=== PATIENT | female | born 1960 | race Caucasian/White ===

== ENCOUNTER 2017-01-19 06:30 | Day surgery (SDC) | payer OTHER ==
[~2017-01-19 06:30] MED LIST: Buffered Lidocaine 0.9% SYRIN* 5 ML/SYR SYRINGE INTRADERM ONE
[2017-01-19] MEDS ORDERED: ceFAZolin 2 GM PREMIX (*) 2 GM/50 ML BAG IVPB ONE (06:35)
[2017-01-19] MEDS ORDERED: Bupivacaine 0.5% W/EPI SDV* 30 ML VIAL ONE ×2 (07:29→07:42)
[2017-01-19] MEDS ORDERED: Midazolam* 1 MG/ML 2 ML VIAL (2 MG) ONE (07:34)
[2017-01-19] MEDS ORDERED: fentaNYL* 50 MCG/ML 2 ML VIAL (100 MCG VIAL) ONE (07:34)
[2017-01-19] MEDS ORDERED: Lidocaine 2% PF * 5 ML VIAL ONE (08:23)
[2017-01-19] MEDS ORDERED: Dexamethasone IV* 4 MG/ML 1 ML (4 MG) ONE (08:23)
[2017-01-19] MEDS ORDERED: Propofol* 10 MG/ML 20 ML BTL IV PUSH ONE (08:23)
[2017-01-19] MEDS ORDERED: Ondansetron INJ* 2 MG/ML VIAL ONE (08:23)
[2017-01-19] MEDS ORDERED: EPHEDrine (Pressors)* 50 MG/ML VIAL ONE (09:07)
[2017-01-19] MEDS ORDERED: Metoclopramide IV* 5 MG/ML 2 ML VIAL IV PRN (09:33)
[2017-01-19] MEDS ORDERED: Metoclopramide IV* 5 MG/ML 2 ML VIAL ONE (11:27)
[2017-01-19 11:33] VITALS: BP 107/57
--- NOTE | 2017-01-19 18:58 | OP ---
DATE OF OPERATION: 01/19/17 - [facility] DATE OF : 64 SURGEON: Rey Lucas MD RADIO RIGGER: ROHAN Birch. An diagnostic assistant was needed for the entirety of the procedure to aid in positioning of the arm, retraction and with the arthroscopic equipment. ANESTHESIOLOGIST: Dr. Hodge. ANESTHESIA: General plus block. PRE-OP DIAGNOSES: 1. Left shoulder rotator cuff tear. 2. Left shoulder acromioclavicular degenerative joint disease. POST-OP DIAGNOSES: 1. Moderate sized left shoulder rotator cuff tear. 2. Left shoulder acromioclavicular degenerative joint disease. 3. Left shoulder glenohumeral synovitis. PROCEDURES PERFORMED: 1. Left shoulder diagnostic arthroscopy. 2. Left shoulder arthroscopic debridement. 3. Left shoulder arthroscopic synovectomy. 4. Left shoulder arthroscopic subacromial decompression with acromioplasty. 5. Left shoulder mini-open double roll rotator cuff repair. 6. Left shoulder open distal clavicle excision. INDICATIONS: Rosetta has had progressive pain that failed to go away despite many months and activity modification and therapy and injections. MRI showed a decent sized tear of the rotator cuff tendon. We had talked about risks and benefits, she had wanted to proceed. ESTIMATED BLOOD LOSS: 25 mL. COMPLICATIONS: None. FINDINGS: See dictation. DESCRIPTION OF PROCEDURE: Rosetta was seen in the preoperative holding area. The correct side, site, and procedure were identified. We came back to the operating room. The arm was prepped and draped in the usual fashion. She had been positioned in the beach chair position. She had gotten her block out in the preop holding area. After the arm was prepped and draped, a time-out was performed. The arm was placed in the Villanueva and Nephew Spider arm mcconnell and I then went ahead and marked out my portal sites. I infiltrated the subacromial space in the operative portals with 0.5% Marcaine. I then developed my posterior portal in a standard fashion with an #11 blade followed by the blunt trocar to enter the joint. The camera was introduced in the joint. The joint was inspected. She was very tight anteriorly and there was not great visualization anteriorly; however, I was able to see the rotator cuff and there was quite a significant tear there. The biceps tendon was a little degenerative, but there was not a lot of synovitis around the tendon. There was no significant SLAP tear. The posterior labrum looked intact. The visualization of the anterior inferior labrum was poor and the subscapularis tendon was intact. I went ahead and brought in the shaver and debrided back the freed edges of the rotator cuff and some synovitis. I then brought in the radiofrequency ablator and performed a partial synovectomy with the radiofrequency ablator. At this point, the joint was looking good, so I withdrew the arthroscopic portals from the shoulder joint and placed the camera in the subacromial space. I located my lateral portal with the spinal needle. I then placed a switching stick and dilated over this and then introduced my radiofrequency ablator through the lateral portal. I performed a subacromial decompression of the bursa. The margins of the rotator cuff were cleaned up as the bursa was excised. I then brought in my bur and performed an arthroscopic acromioplasty of the anterior inferior hook off of the acromion. The one set was complete. Then, I went ahead and decided that it should best served with a mini- open rotator cuff repair due to the size of the tear. I therefore irrigated everything out and then withdrew the arthroscopic equipment. At this point, I made a 3 cm longitudinal incision in line with my lateral portal from the lateral margin of the acromion longitudinally distally. The full- thickness flaps were raised off the deltoid fascia. This was split. The fibers of the deltoid were bluntly longitudinally. I placed a Link retractor to visualize the rotator cuff tear. The footprint of the rotator cuff insertion was debrided and cleaned up and curetted off to prepare for until I got some bleeding bone and was prepared for good tendon to bone healing. I then placed my two medial row anchors. These were Villanueva and Nephew Suture anchors. I used the Villanueva and Nephew Suture passer to pass the two tails of suture off my anterior tendon through the anterior portion of the rotator cuff tear. I then passed all four tails of the suture through the rotator cuff posteriorly. I then took three tails of suture and brought them down and secured them laterally with a PushLock type Villanueva and Nephew Suture anchor. The other three tails of suture were brought down more posteriorly and secured with a PushLock Villanueva and Nephew Suture anchor. At this point, the double-row repair was completed. There was excellent gnosticism of the rotator cuff footprint. There was excellent tendon to bone apposition. It was very tight and very secure. I took the arm trough a range of motion and the rotator cuff did not gap off the bone throughout the entire arc of motion. I therefore went ahead and took the rasp and just freshen up my subacromial decompression. I then irrigated up this wound. The deltoid fascia was closed with 0 Vicryl suture. The skin was closed with 3-0 nylon suture. The portal sites at this time are closed with 3-0 nylon suture. I then made a 2 cm incision directly over the AC joint. The dissection was carried down. The clavipectoral fascia was incised longitudinally as were the superior AC ligaments. Soft tissue was released off the bone. A couple of baby Hohmann retractors were placed. The sagittal saw was used to excise the distal 1 cm of clavicle. The wound was irrigated. The superior AC ligaments were reapproximated with 0 Vicryl suture. Skin was closed with 3-0 nylon suture. At this point, all of the wounds and the subacromial space were again infiltrated with the remainder of the 0.5% Marcaine with epinephrine. The wounds were dressed with Xeroform, 4x4s, Tegaderm and then an ABD was placed with foam tape on top of that. A clean apparatus was placed over that. The arm was placed in an abduction splint. The patient was then woken up and taken to the recovery room in stable condition. [id number]/[facility] #: [id number] CYNDEE
== END 2017-01-19 12:03 | disposition home or self-care (01) ==
LOC: OREAST 06:30
PROVIDERS: ATTEND Orthopaedic Surgery Hand Surgery
DX: S46.012A Strain of muscle(s) and tendon(s) of the rotator cuff of left shoulder, initial encounter (principal); M19.012 Primary osteoarthritis, left shoulder; M65.812 Other synovitis and tenosynovitis, left shoulder; G89.18 Other acute postprocedural pain; X58.XXXA Exposure to other specified factors, initial encounter; Y92.9 Unspecified place or not applicable; F17.210 Nicotine dependence, cigarettes, uncomplicated
CPT/HCPCS: 88304; 88311; C1713; J0690; J1100; J2250; J2405; J2704; J2765; J3010

== ENCOUNTER 2017-05-15 08:32 | Day surgery (SDC) | payer OTHER ==
[~2017-05-15 08:32] MED LIST changes: +Dexamethasone IV* 4 MG/ML 1 ML (4 MG) IV SLOW PU ONE; +Famotidine IV* 10 MG/ML 2 ML (20 mg) IV ONE; +Sodium Citrate/Citric Acid* 15 ML UDC PO ONE
[2017-05-15] MEDS ORDERED: Famotidine IV* 10 MG/ML 2 ML (20 mg) ONE (09:06)
[2017-05-15] MEDS ORDERED: Dexamethasone IV* 4 MG/ML 1 ML (4 MG) ONE (09:06)
[2017-05-15] MEDS ORDERED: Sodium Citrate/Citric Acid* 15 ML UDC ONE (09:07)
[2017-05-15] MEDS ORDERED: fentaNYL* 50 MCG/ML 2 ML VIAL (100 MCG VIAL) ONE ×3 (10:05→11:20)
[2017-05-15] MEDS ORDERED: Midazolam* 1 MG/ML 2 ML VIAL (2 MG) ONE (10:05)
[2017-05-15] MEDS ORDERED: Rocuronium* 10 MG/ML VIAL ONE (10:05)
[2017-05-15] MEDS ORDERED: Succinylcholine* 20 MG/ML 10 ML VIAL ONE (10:08)
[2017-05-15] MEDS ORDERED: Propofol* 10 MG/ML 20 ML BTL IV PUSH ONE (10:08)
[2017-05-15] MEDS ORDERED: Ondansetron INJ* 2 MG/ML VIAL IV PRN (10:17)
[2017-05-15] MEDS ORDERED: PROCHLORPERAZINE INJ 5 MG/ML 2 ML VIAL IV PRN (10:17)
[2017-05-15] MEDS ORDERED: Naloxone* 0.4 MG/ML 1 ML VIAL IV PRN (10:17)
[2017-05-15] MEDS ORDERED: HYDROmorphone INJ* 1 MG/ML CARPUJECT SYRINGE IV PRN (10:17)
[2017-05-15] MEDS ORDERED: Ketorolac INJ* 30 MG/ML 1 ML VIAL IV PRN (10:17)
[2017-05-15] MEDS ORDERED: oxyCODONE/Acetamin 5/325 MG* TAB PO PRN (10:17)
[2017-05-15] MEDS ORDERED: Sugammadex * 200 MG/2 ML VIAL IV PUSH ONE (10:22)
[2017-05-15] MEDS: fentaNYL* 50 MCG/ML 2 ML VIAL (100 MCG VIAL) IV PRN ×3 (11:06→11:26)
[2017-05-15] MEDS ORDERED: Ketorolac INJ* 30 MG/ML 1 ML VIAL ONE (11:08)
[2017-05-15] MEDS ORDERED: HYDROmorphone INJ* 2 MG/ML CARPUJECT SYRINGE ONE (11:11)
[2017-05-15] MEDS ORDERED: Bupivacaine 0.25% SDV* 30 ML ONE (11:30)
[2017-05-15] MEDS ORDERED: Betamethasone INJ* 6 MG/ML 5 ML VIAL (30 MG) PRN (11:43)
[2017-05-15] MEDS ORDERED: oxyCODONE/Acetamin 5/325 MG* TAB ONE (12:20)
[2017-05-15 12:22] VITALS: BP 130/52
--- NOTE | 2017-05-16 14:42 | OP ---
DATE OF OPERATION: 05/15/17 - [facility] DATE OF : 64 SURGEON: Rey Lucas MD STRIPER: None. ANESTHESIOLOGIST: Dr. Saldaña. ANESTHESIA: General. PRE-OP DIAGNOSIS: Severe stiffness, status post left shoulder mini open rotator cuff repair and arthroscopic decompression 3 months ago. POST-OP DIAGNOSIS: Severe stiffness, status post left shoulder mini open rotator cuff repair and arthroscopic decompression 3 months ago. OPERATIVE PROCEDURE: Left shoulder manipulation under anesthesia. INDICATIONS: Rosetta had the shoulder surgery done about 3 months ago, it has just become quite stiff. She has been working very hard with the therapist, but she is not really making gains. She has essentially no external rotation and severely limited flexion and abduction. I had talked to her about her options. She wanted to proceed with surgery. ESTIMATED BLOOD LOSS: None. COMPLICATIONS: None. FINDINGS: None. DESCRIPTION OF PROCEDURE: Rosetta was seen in the preoperative holding area. We came back to the operating room. Anesthesia was induced. We had a time-out. I very gently manipulated the shoulder first into external rotation. They required a few little pops and scar tissue bands released. Once I had achieved full external rotation, I brought the arm back down to the side and then slowly brought it into forward flexion and gentle abduction until I had the completely above the head. Again, multiple small pops were felt as I very gently performed manipulation. I did not manipulate her in internal rotation as I did not want to put any stress on the rotator cuff repair. The manipulation went uneventfully. She was then woken up and taken to the recovery room in stable condition. [id number]/[facility] #: [id number] MTDD
== END 2017-05-15 13:06 | disposition home or self-care (01) ==
LOC: OR 08:32
PROVIDERS: ATTEND Orthopaedic Surgery Hand Surgery
DX: M75.02 Adhesive capsulitis of left shoulder (principal); Z98.890 Other specified postprocedural states; F17.210 Nicotine dependence, cigarettes, uncomplicated
CPT/HCPCS: A9270-GY; J0330; J1100; J1170; J1885; J2250; J2704; J3010

== ENCOUNTER 2019-05-21 10:55 | Emergency (ER) | payer BC, OTHER ==
--- NOTE | 2019-05-21 11:22 | ED ---
HPI Chest Pain - HPI Summary HPI Summary: This patient is a 58 y/o female presenting to [facility] via EMS from [facility] for left sided chest pain since last night. Patient reports yesterday she had high blood pressure and her PCP started her on low dose of Hydrochlorothiazide. Patient notes last night she was not feeling well and began to have left sided chest pain and left arm pain. This morning upon waking up she still had left sided chest pain radiating into her left arm, along with sinus pressure and tingling in her face. She took her blood pressure this morning and it was 160 systolic. Patient took a shower and went to work and at work she still didn't feel well. Her blood pressure was 168 systolic at work and she went to Urgent Care. 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 She currently rates her chest pain 3/10 in severity. Denies fever, nausea, vomiting, shortness of breath. PMHx: GERD for which she takes Protonix BID, chronic constipation for which she takes Linzess, small bacteria intestine overgrowth, brain aneurysm for which she takes daily baby aspirin. Denies tobacco and drug use. She admits to occasional alcohol use. Home Medications Medication Instructions Recorded Confirmed Type Fluticasone NASAL SPRAY 50MCG* 2 spray BOTH NARES DAILY 01/12/17 05/21/19 History [Flonase NASAL SPRAY 50MCG*] Linaclotide (NF) [Linzess (NF)] 290 mcg PO QAM 01/12/17 05/21/19 History Polyethylene Glycol 3350 BTL* 7 g PO DAILY 01/12/17 05/21/19 History [Miralax] Aspirin EC TAB* [Ecotrin EC Low 81 mg PO DAILY 05/21/19 05/21/19 History Dose 81 MG*] Cimetidine TAB (NF) [Tagamet (NF)] 300 mg PO QPM 05/21/19 05/21/19 History Cranberry Fruit Extract [Hm 1,000 mg PO DAILY 05/21/19 05/21/19 History Cranberry Ultra Streng] Cyanocobalamin TAB* [Vitamin B12 500 mcg PO DAILY 05/21/19 05/21/19 History TAB*] Cyclosporine 0.05% OPHTH (NF) 1 drop BOTH EYES Q12H 05/21/19 05/21/19 History [Restasis 0.05% OPHTH] L.acidoph,Paracasei, B.lactis 1 each PO DAILY 05/21/19 05/21/19 History [Probiotic] Lysine HCl [l-Lysine] 500 mg PO DAILY 05/21/19 05/21/19 History Magnesium Oxide [Magnesium] 250 mg PO DAILY 05/21/19 05/21/19 History Multivitamins/Minerals TAB* 1 tab PO DAILY 05/21/19 05/21/19 History [Theragran/minerals TAB*] [place]-3 Fatty Acids (Nf) [Fish Oil 1,120 mcg PO DAILY 05/21/19 05/21/19 History (NF)] Ondansetron TAB* [Zofran 4 MG Tab*] 4 mg PO Q8H PRN 05/21/19 05/21/19 History Pantoprazole TAB * [Protonix TAB*] 40 mg PO DAILY 05/21/19 05/21/19 History ValACYclovir (*) [Valtrex 1 GM(*)] 2 gm PO DAILY 05/21/19 05/21/19 History hydroCHLOROthiazide 12.5 mg PO DAILY 05/21/19 05/21/19 History [Hydrochlorothiazide] - History of Current Complaint Time Seen by Provider: 05/21/19 10:57 Hx Obtained From: Patient Onset/Duration: Started Hours Ago, Still Present Timing: Lasting Hours Current Severity: Mild Pain Intensity: 3 Pain Scale Used: 0-10 Numeric Chest Pain Location: Left Anterior Chest Pain Radiates: Yes Chest Pain Radiates To:: Arm - left Character: Dull/Aching - aching Aggravating Factor(s): Nothing Alleviating Factor(s): Nothing Associated Signs and Symptoms: Positive: Chest Pain, Tingling - sinuses, Sinus Discomfrot. Negative: Shortness of Breath, Fever, Nausea, Vomiting - Allergy/Home Medications Allergies/Adverse Reactions: Allergies Allergy/AdvReac Type Severity Reaction Status Date / Time No Known Allergies Allergy Verified 05/11/17 15:17 Home Medications: Home Medications Fluticasone NASAL SPRAY 50MCG* [Flonase NASAL SPRAY 50MCG*] 2 spray BOTH NARES DAILY 01/12/17 [History Confirmed 05/21/19] Linaclotide (NF) [Linzess (NF)] 290 mcg PO QAM 01/12/17 [History Confirmed 05/20] Polyethylene Glycol 3350 BTL* [Miralax] 7 g PO DAILY 01/12/17 [History Confirmed 05/21/19] Aspirin EC TAB* [Ecotrin EC Low Dose 81 MG*] 81 mg PO DAILY 05/21/19 [History Confirmed 05/21/19] Cimetidine TAB (NF) [Tagamet (NF)] 300 mg PO QPM 05/21/19 [History Confirmed 12/30] Cranberry Fruit Extract [Hm Cranberry Ultra Streng] 1,000 mg PO DAILY 05/21/19 [ History Confirmed 05/21/19] Cyanocobalamin TAB* [Vitamin B12 TAB*] 500 mcg PO DAILY 05/21/19 [History Confirmed 05/21/19] Cyclosporine 0.05% OPHTH (NF) [Restasis 0.05% OPHTH] 1 drop BOTH EYES Q12H 05/20 [History Confirmed 05/21/19] L.acidoph,Paracasei, B.lactis [Probiotic] 1 each PO DAILY 05/21/19 [History Confirmed 05/21/19] Lysine HCl [l-Lysine] 500 mg PO DAILY 05/21/19 [History Confirmed 05/21/19] Magnesium Oxide [Magnesium] 250 mg PO DAILY 05/21/19 [History Confirmed 05/21/19 ] Multivitamins/Minerals TAB* [Theragran/minerals TAB*] 1 tab PO DAILY 05/21/19 [ History Confirmed 05/21/19] [place]-3 Fatty Acids (Nf) [Fish Oil (NF)] 1,120 mcg PO DAILY 05/21/19 [History Confirmed 05/21/19] Ondansetron TAB* [Zofran 4 MG Tab*] 4 mg PO Q8H PRN 05/21/19 [History Confirmed 05/21/19] Pantoprazole TAB * [Protonix TAB*] 40 mg PO DAILY 05/21/19 [History Confirmed ] ValACYclovir (*) [Valtrex 1 GM(*)] 2 gm PO DAILY 05/21/19 [History Confirmed 12/30] hydroCHLOROthiazide [Hydrochlorothiazide] 12.5 mg PO DAILY 05/21/19 [History Confirmed 05/21/19] PMH/Surg Hx/FS Hx/Imm Hx Endocrine/Hematology History: Denies: Hx Diabetes Cardiovascular History: Denies: Hx Hypertension, Hx Pacemaker/ICD GI History: Reports: Hx Gastroesophageal Reflux Disease, Other GI Disorders - CHRONIC CONSTIPATION//SMALL BACTERIA INTESTINE OVERGROWTH-SEE A GASTRO MD History: Denies: Hx Renal Disease Musculoskeletal History: Reports: Other Musculoskeletal History - LEFT SHOULDER Sensory History: Reports: Hx Contacts or Glasses - GLASSES Denies: Hx Hearing Aid Opthamlomology History: Reports: Hx Contacts or Glasses - GLASSES Psychiatric History: Denies: Hx Panic Disorder - Surgical History Surgical History: Yes Surgery Procedure, Year, and Place: TUBE IN LEFT EAR 10/17/16. [place]STERECTOMY, 2006 , [place]. SEVERAL SURGERIES FOR ENDOMETRIOSIS. TONSIL/ADENOIDS, age 10 or 11. [place]UBE [place]AR, 2014. [place] [facility] [place]esthesia Reactions: Yes - X 1 SURGERY- A LITTLE LONGER TO WAKE UP- 10 YEARS AGO - Family History Known Family History: Positive: Hypertension - mother Family History: Mother with cancer. - Social History Alcohol Use: Rare Alcohol Amount: holidays Substance Use Type: Reports: None Smoking Status (MU): Heavy Every Day Tobacco Smoker Amount Used/How Often: 1/2-3/4 PPD X 30+ YEARS Have You Smoked in the Last Year: Yes Review of Systems Negative: Fever ENT: Other - POSITIVE: sinus pressure Positive: Chest Pain Negative: Shortness Of Breath Negative: Vomiting, Nausea Musculoskeletal: Other - POSITIVE: left arm pain Positive: Paresthesia - face All Other Systems Reviewed And Are Negative: Yes Physical Exam - Summary Physical Exam Summary: VITAL SIGNS: Reviewed. GENERAL: Patient is a well-developed and nourished female who is lying comfortable in the stretcher. Patient is not in any acute respiratory distress. HEAD AND FACE: No signs of trauma. No ecchymosis, hematomas or skull depressions. No sinus tenderness. EYES: PERRLA, EOMI x 2, No injected conjunctiva, no nystagmus. EARS: Hearing grossly intact. Ear canals and tympanic membranes are within normal limits. MOUTH: Oropharynx within normal limits. NECK: Supple, trachea is midline, no adenopathy, no JVD, no carotid bruit, no c- spine tenderness, neck with full ROM. CHEST: Symmetric, reproducible pain on left upper chest LUNGS: Clear to auscultation bilaterally. No wheezing or crackles. CVS: Regular rate and rhythm, S1 and S2 present, no murmurs or gallops appreciated. ABDOMEN: Soft, non-tender. No signs of distention. No rebound, no guarding, and no masses palpated. Bowel sounds are normal. EXTREMITIES: FROM in all major joints, no edema, no cyanosis or clubbing. NEURO: Alert and oriented x 3. No acute neurological deficits. Speech is normal and follows commands. SKIN: Dry and warm Triage Information Reviewed: Yes Vital Signs On Initial Exam: Initial Vitals Temp Pulse Resp BP Pulse Ox 98.4 F 78 18 148/75 97 05/21/19 11:12 05/21/19 11:12 05/21/19 11:12 05/21/19 11:12 05/21/19 11:12 Vital Signs Reviewed: Yes Procedures - Sedation Patient Received Moderate/Deep Sedation with Procedure: No Diagnostics - Laboratory Result Diagrams: 05/21/19 11:14 05/21/19 11:14 Lab Statement: Any lab studies that have been ordered have been reviewed, and results considered in the medical decision making process. - Radiology Chest XR Radiology Interpretation Completed By: Radiologist Summary of Radiographic Findings: IMPRESSION: No active cardiopulmonary disease. Dr. Norman has reviewed this report. - EKG 11:15 Cardiac Rate: NL - at 81 bpm EKG Rhythm: Sinus Rhythm Summary of EKG Findings: EKG at 1115 shows sinus rhythm at a rate of [address] elevations. Normal axis. This EKG was interpreted and reviewed by ED physician. Chest Pain Course/Dx - Course Assessment/Plan: This patient is a 58 y/o female presenting to [facility] via EMS from [facility] for left sided chest pain since last night. Patient reports yesterday she had high blood pressure and her PCP started her on low dose of Hydrochlorothiazide. Patient notes last night she was not feeling well and began to have left sided chest pain and left arm pain. This morning upon waking up she still had left sided chest pain radiating into her left arm, along with sinus pressure and tingling in her face. She took her blood pressure this morning and it was 160 systolic. Patient took a shower and went to work and at work she still didn't feel well. Her blood pressure was 168 systolic at work and she went to Urgent Care. 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 She currently rates her chest pain 3/10 in severity. Denies fever, nausea, vomiting, shortness of breath. PMHx: GERD for which she takes Protonix BID, chronic constipation for which she takes Linzess, small bacteria intestine overgrowth, brain aneurysm for which she takes daily baby aspirin. Denies tobacco and drug use. She admits to occasional alcohol use. In the ED course the patient was placed in a customer assistance associate, IV access was obtained, IV fluids started. Vision was given aspirin and nitroglycerin by the urgent care and the EMS. She reports no improvement symptoms. Past medical records reviewed. Blood test w/o a significant abnormality except for glucose is 102, magnesium 1.8, AST is 40 and total bili is 1.4. EKG shows a normal sinus rhythm without any ST elevations. Two troponins 4 hours apart are both 0.00. Patient reports that all symptoms have resolved. Patient's HEART score is : 2 therefore, low suspicion for CAD. Patient is not hypoxic or tachycardic. Wells criteria is 0. Therefore, no suspicion for PE. Patient has no abdominal bruit thus no suspicion for AAA. Patients pain does not radiate to the back and pain has resolved thus low suspicion for aortic dissection. I discussed all the findings and test results with the patient. Patient was instructed to return to the emergency room immediately if any of the symptoms return or worsen. Patient understands and agrees. Plan of care was discussed with the patient and patient understands and agrees. All questions were answered at patient satisfaction. There were no further complaints or concerns. PE before discharge: CVS: S1 and S2 present. No murmurs appreciated. Abdominal exam before discharge: Soft, non-tender. No signs of distention. No rebound no guarding, and no masses palpated. Bowel sounds are normal. Patient is alert and oriented x 3. Patient is hemodynamically stable. - Chest Pain Differential Diagnosis/HQI/PQRI: Acute MA, ACS, Angina, CHF, Chest Wall, GI Disease, Lower Respiratory Infection, Pulmonary Edema - Diagnoses Provider Diagnoses: Atypical chest pain Discharge ED - Sign-Out/Discharge Documenting (check all that apply): Patient Departure - Discharge home - Discharge Plan Condition: Stable Disposition: HOME Patient Education Materials: Chest Pain (ED) Referrals: Guille TEMPLE,Janice Moscoso [Primary Care Provider] - Additional Instructions: FOLLOW UP WITH YOUR PRIMARY CARE PROVIDER IN 2-3 DAYS. RETURN TO THE ED FOR ANY NEW OR WORSENING SYMPTOMS. - Billing Disposition and Condition Condition: STABLE Disposition: Home - Attestation Statements Document Initiated by Carrie: Yes Documenting Scribe: Isabel Main Provider For Whom Carrie is Documenting (Include Credential): Jason Norman MD Scribe Attestation: Isabel Schaeffer, scribed for Jason Norman MD on 05/25/19 at 1755. Scribe Documentation Reviewed: Yes Provider Attestation: The documentation as recorded by the Isabel iglesias accurately reflects the service I personally performed and the decisions made by me, Jason Norman MD Status of Scribe Document: Viewed
[2019-05-21 11:36] LABS: ABS Lymphocytes 1.5 10^3/ul (1.0-4.8); ABS Monocytes 0.6 10^3/ul (0-0.8); ABS Neutrophils 3.1 10^3/ul (1.5-7.7); Eosinophil % 0.8 %; Hematocrit 42 % (35-47); Hemoglobin 14.5 g/dL (12.0-16.0); Lymphocyte % 28.7 %; Mean Corpuscular HGB Conc 34 g/dL (31-36); Mean Corpuscular Hemoglobin 33 pg (27-31); Mean Corpuscular Volume 97 fL (80-97); Mean Platelet Volume 8.5 fL (7.4-10.4); Nucleated Red Blood Cells % 0.1; Platelet Count 245 10^3/uL (150-450); Red Blood Count 4.39 10^6 /uL (3.70-4.87); Red Cell Distribution Width 12 % (10-15); White Blood Count 5.3 10^3/uL (3.5-10.8)
[2019-05-21 11:53] LABS: Albumin 4.6 g/dL (3.2-5.2); Albumin/Globulin Ratio 1.7 (1-3); BUN/Creatinine Ratio 15.2 (8-20); CKMB ng/mL 1.8 ng/mL (0.6-6.3); EGFR African American 91.1 (>60); EGFR Non-African American 75.3 (>60); Globulin 2.7 g/dL (2-4); Magnesium 1.8 mg/dL (1.9-2.7); Potassium 3.5 mmol/L (3.5-5.0); Total Bilirubin 1.4 mg/dL (0.2-1.0); Total Protein 7.3 g/dL (6.4-8.9)
--- OUTSIDE RECORDS SUMMARY | 2019-05-21 11:58 | XMS REPORT | Summary of Care ---
:1960 Author Organization [facility] Address [address] [place] [address] Care Team Providers Name Role Phone Janice Han Primary Care Provider Reason for Visit Reason Comments Sinus Problem Encounter Details Date Type Department Care Team Description 04/16/2019 Office Visit [facility] Krunal Felder, Dry eye of right side (Primary Dx); [id number] Jessica Garza MD Acute non-[place] [address] [address] [address] [place] [phone] [phone] Allergies Active Allergy Reactions Severity Noted Date Comments Clindamycin Hcl Dermatologic Reaction Low 11/13/2018 Made pt very ill documented as of this encounter (statuses as of 04/16/2019) Medications Medication Sig Dispensed Refills Start Date End Date Status Multiple Vitamin Take by mouth 0 Active (MULTI-VITAMIN PO) DAILY. L-LYSINE PO Take 2 Tabs by 0 Active mouth DAILY. Cyanocobalamin (B-12 PO) Take by mouth. 0 Active polyethylene glycol Take 17 g by 527 g 5 08/21/2018 Active (MIRALAX) Oral mouth DAILY. PowderIndications: Chronic constipation VALTREX 1 g Oral Take 2 Tabs by 4 Tab 3 01/25/2019 Active TabIndications: mouth TWICE Recurrent herpes DAILY for 1 day. labialis fluticasone (FLONASE) 50 [place] 2 Sprays 1 Bottle 2 02/01/2019 Active MCG/ACT Nasal in nose DAILY. SuspensionIndications: ETD (Eustachian tube dysfunction), left, Hypertrophy of inferior nasal turbinate, Chronic rhinitis ondansetron (ZOFRAN) 4 Take 1 Tab by 15 Tab 0 02/20/2019 Active MG Oral TABLET mouth EVERY DISPERSIBLE EIGHT HOURS NEEDED (nausea/vomiting ). pantoprazole (PROTONIX) Take 1 Tab by 30 Tab 2 03/12/2019 Active 40 MG Oral Tab mouth DAILY. ECIndications: Gastritis and gastroduodenitis linaCLOtide (LINZESS) Take 290 mcg by 30 Cap 2 03/12/2019 Active 290 MCG Oral mouth EVERY CapIndications: Chronic MORNING. constipation Magnesium 250 MG Oral Take by mouth. 0 Active Tab Cranberry 1000 MG Oral Take by mouth. 0 Active Cap [place] 3 1000 MG Oral Cap Take 1,120 mcg 0 Active by mouth. Lactobacillus (PROBIOTIC Take by mouth. 0 Active ACIDOPHILUS PO) tobramycin-dexamethasone Place 1 Drop in 1 Bottle 1 03/28/2019 Active (TOBRADEX) 0.3-0.1 % right eye THREE Ophthalmic TIMES DAILY. SuspensionIndications: Viral conjunctivitis of right eye Aspirin 81 MG Oral Tab Take 81 mg by 0 Active mouth. cimetidine (TAGAMET) 300 Take 300 mg by 30 Tab 5 04/10/2019 Active MG Oral TabIndications: mouth EVERY Gastritis and EVENING. gastroduodenitis amoxicillin-clavulanic Take 1 Tab by 20 Tab 0 04/12/2019 Active acid (AUGMENTIN) 875-125 mouth TWICE MG Oral TabIndications: DAILY. Acute non-recurrent maxillary sinusitis methylPREDNISolone, Take as directed 21 Tab 0 04/12/2019 Active dose-yandy, (MEDROL) 4 MG Oral Tablet Therapy PackIndications: Acute non-recurrent maxillary sinusitis documented as of this encounter (statuses as of 04/16/2019) Active Problems Problem Noted Date Trace cataracts 02/01/2019 Vitreous floaters of right eye 02/01/2019 PVD (posterior vitreous detachment), left eye 02/01/2019 Round hole of retina of left eye 02/01/2019 Small intestinal bacterial overgrowth 10/03/2017 Current smoker 04/23/2015 Wears partial dentures 04/23/2015 LPRD (laryngopharyngeal reflux disease) 04/23/2015 Neck pain 05/13/2013 Shoulder pain, acute 05/13/2013 Dizzy 05/13/2013 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 GERD (gastroesophageal reflux disease) 10/15/2008 Endometriosis 10/15/2008 documented as of this encounter (statuses as of 04/16/2019) Immunizations Name Administration Dates Next Due TDAP Vaccine 10/29/2008 documented as of this encounter Social History Tobacco Use Types Packs/Day Years Used Date Current Every Day Smoker Cigarettes 0.5 30 Smokeless Tobacco: Never Used Alcohol Use Drinks/Week oz/Week Comments Not Currently socially Sex Assigned at Date Recorded Not on file Job Start Date Occupation Industry Not on file Not on file Not on file Travel History Travel Start Travel End No recent travel history available. documented as of this encounter Last Filed Vital Signs Vital Sign Reading Time Taken Comments Blood Pressure 140/72 04/16/2019 3:32 PM EST Pulse 82 04/16/2019 3:32 PM EST Temperature 36.4 04/16/2019 3:32 PM EST C (97.6 F) Respiratory Rate - - Oxygen Saturation 99% 04/16/2019 3:32 PM EST Inhaled Oxygen Concentration - - Weight 68.9 kg (152 lb) 04/16/2019 3:32 PM EST Height - - Body Mass Index 24.53 04/10/2019 8:40 AM EST documented in this encounter Progress Notes Krunal Felder MD - 04/16/2019 3:40 PM EST PATIENT: Rosetta Bain : 1960 DATE OF SERVICE: 04/16/2019 Subjective SUBJECTIVE: Rosetta Bain is a 58-y.o. female who presents today for a follow up regarding sinus and eye issues. Reports that she was recently seen at the walk-in clinic and prescribed antibiotics and prednisone. Reports that her sinus symptoms have improved considerably. She is currently taking her antibiotics. Has not been doing any nasal/sinus rinses. Reports having dryness in her right eye for the last few days. Has not called her eye doctor for this issue. Recently had a viral infection in that eye and wasprescribed ophthalmic antibiotic drops. Past Medical History: Diagnosis Date Dizziness Endometriosis diag as teenager surgeries in [id number], four in total GERD (gastroesophageal reflux disease) 1998 did have scope which showed gastritis Headache disorder Nulliparity Otitis media Pneumonia Postmenopausal Sinusitis, chronic Current Outpatient Medications Medication Sig amoxicillin-clavulanic acid (AUGMENTIN) 875-125 MG Oral Tab Take 1 Tab by mouth TWICE DAILY. Aspirin 81 MG Oral Tab Take 81 mg by mouth. cimetidine (TAGAMET) 300 MG Oral Tab Take 300 mg by mouth EVERY EVENING. Cranberry 1000 MG Oral Cap Take by mouth. Cyanocobalamin (B-12 PO) Take by mouth. fluticasone (FLONASE) 50 MCG/ACT Nasal Suspension [place] 2 Sprays in nose DAILY. L-LYSINE PO Take 2 Tabs by mouth DAILY. Lactobacillus (PROBIOTIC ACIDOPHILUS PO) Take by mouth. linaCLOtide (LINZESS) 290 MCG Oral Cap Take 290 mcg by mouth EVERY MORNING. Magnesium 250 MG Oral Tab Take by mouth. methylPREDNISolone, dose-yandy, (MEDROL) 4 MG Oral Tablet Therapy Pack Take as directed Multiple Vitamin (MULTI-VITAMIN PO) Take by mouth DAILY. [place] 3 1000 MG Oral Cap Take 1,120 mcg by mouth. ondansetron (ZOFRAN) 4 MG Oral TABLET DISPERSIBLE Take 1 Tab by mouth EVERY EIGHT HOURS NEEDED (nausea/vomiting). pantoprazole (PROTONIX) 40 MG Oral Tab EC Take 1 Tab by mouth DAILY. polyethylene glycol (MIRALAX) Oral Powder Take 17 g by mouth DAILY. tobramycin-dexamethasone (TOBRADEX) 0.3-0.1 % Ophthalmic Suspension Place 1 Drop in right eyeTHREE TIMES DAILY. VALTREX 1 g Oral Tab Take 2 Tabs by mouth TWICE DAILY for 1 day. No current facility-administered medications for this visit. Allergies Allergen Reactions Clindamycin Hcl Dermatologic Reaction Made pt very ill REVIEW OF SYSTEMS: Review of Systems Constitutional: Negative for chills and fever. HENT: Negative for sinus pain. Eyes: Negative for blurred vision, double vision, photophobia, pain, discharge and redness. Respiratory: Negative for cough and shortness of breath. Cardiovascular: Negative for chest pain. Gastrointestinal: Negative for nausea and vomiting. Skin: Negative for itching. Neurological: Negative for dizziness and headaches. Objective OBJECTIVE: BP 140/72 (BP Location: Left arm, Patient Position: Sitting) | Pulse 82 | Temp 97.6 F (36.4 C) (Tympanic) | Wt 152 lb (68.9 kg) | SpO2 99% | BMI 24.53 kg/m Physical Exam Constitutional: Appearance: Normal appearance. HENT: Head: Normocephalic and atraumatic. Right Ear: External ear normal. Left Ear: External ear normal. Nose: No congestion. Right Sinus: No maxillary sinus tenderness or frontal sinus tenderness. Left Sinus: No maxillary sinus tenderness or frontal sinus tenderness. Eyes: General: No scleral icterus. Right eye: No discharge. Left eye: No discharge. Extraocular Movements: Extraocular movements intact. Conjunctiva/sclera: Conjunctivae normal. Pupils: Pupils are equal, round, and reactive to light. Cardiovascular: Rate and Rhythm: Normal rate and regular rhythm. Pulses: Normal pulses. Heart sounds: Normal heart sounds. Pulmonary: Effort: Pulmonary effort is normal. Breath sounds: Normal breath sounds. Abdominal: General: Bowel sounds are normal. Skin: General: Skin is warm and dry. Neurological: Mental Status: She is alert. ASSESSMENT: ICD-9-CM ICD-10-CM 1. Dry eye of right side 375.15 H04.121 2. Acute non-recurrent maxillary sinusitis 461.0 J01.00 PLAN: 1. Dry eye of right side Likely secondary to recent infection. Recommend using artificial tears. If dryness persists, recommend seeing her housekeeper and laundry assistant. 2. Acute non-recurrent maxillary sinusitis Improved. Continue antibiotics and steroids. There are no Patient Instructions on file for this visit. Author: Krunal Felder MD 04/16/2019 16:27 documented in this encounter Plan of Treatment Date Type Specialty Care Team Description 04/26/2019 Appointment Radiology 04/26/2019 Office Visit Neurosurgery Merna Isaacs MD [address] [place] [address] 06/18/2019 Office Visit Neurology Rey Waters MD [address] [address] Health Maintenance Due Date Last Done Comments PNEUMOCOCCAL 0-64 YRS (1 of 1968 1 - PPSV23) ZOSTER IMMUNIZATION SERIES 2012 (1 of 2) DTaP/Tdap/Td Vaccines (2 - 10/29/2018 10/29/2008 Tdap) INFLUENZA VACCINE (#1) 2018 MAMMOGRAM (SCREENING) 11/08/2019 11/07/2018, 11/07/2018, 11/06/2017, Additional history exists DEPRESSION SCREENING 11/20/2019 11/19/2018 LIPID DISORDER SCREENING 02/15/2020 02/14/2019, 08/29/2017, 04/09/2014, Additional history exists PAP SMEAR 02/27/2021 02/27/2018, 03/18/2015, 01/04/2012, Additional history exists Colonoscopy 05/26/2024 05/26/2014, 05/26/2014, 04/16/2014 HEPATITIS A IMMUNIZATION Aged Out No longer eligible SERIES based on patient's age to complete this topic HPV IMMUNIZATION SERIES Aged Out No longer eligible based on patient's age to complete this topic MENINGOCOCCAL VACCINE IMM Aged Out No longer eligible based on patient's age to complete this topic documented as of this encounter Goals Goal Patient Goal Associated Recent Patient-Stated? Author Type Problems Progress Work with your General Gissel Felder Jewelry Sales Representative MD Krunal Note: This is an individualized treatment (frequent ED use) goal for Rosetta Bain: Please work with your Jewelry Sales Representative, who will assist you in meeting your goals of care. Regular appointments with primary care Lifestyle Krunal Franco MD provider (PCP) Note: This is an individualized lifestyle goal for Rosetta Bain: Please schedule regular visits with your primary care provider (PCP). Care provided in your PCP's office can help reduce your need for additional trips to the Emergency Room. Take all prescribed medications as Self-management Krunal Franco MD directed Note: This is an individualized self-management goal for Rosetta Bain: Please take all prescribed medications as directed. 1. Do not skip doses. If you cannot afford your medications, talk with your doctor. 2. Use a pill reminder system such as a pill box if needed. Your pharmacist can help you with this. 3. Contact your Pharmacy 5 days before your medication runs out. If you cannot take your medications for any reasons, talk with your doctor. 4. Please bring all of your medication bottles and inhalers (or a list of all your medications/inhalers) with you to every visit. Potential barriers to meeting all of your care plan goals will continue to be addressed on an ongoing basis. documented as of this encounter Results Not on filedocumented in this encounter Visit Diagnoses Diagnosis Dry eye of right side Acute non-recurrent maxillary sinusitis documented in this encounter Insurance Payer Benefit Plan / Subscriber ID Effective Dates Phone Address Type Group [facility] xxxxxxxxxxxxxxx 2017-[place] [employer] Guarantor Name Account Type Relation to Date of Phone Billing Patient Address BhavanaeduardoPatricia lauRosetta M Personal/Family 1960 [address] [phone] [place], [place] ([place]) [address] documented as of this encounter"
--- OUTSIDE RECORDS SUMMARY | 2019-05-21 11:58 | XMS REPORT | Summary of Care ---
:1960 Author Organization [facility] Address [address] [place] [address] Care Team Providers Name Role Phone Janice Han Primary Care Provider Reason for Visit Reason Comments Flank Pain Encounter Details Date Type Department Care Team Description 04/25/2019 Emergency [facility] Emergency Seamus Astorga DO Emergency Department [address] [address] [facility] [place] [address] [place] [address] Allergies Active Allergy Reactions Severity Noted Date Comments Clindamycin Hcl Dermatologic Reaction Low 11/13/2018 Made pt very ill documented as of this encounter (statuses as of 04/26/2019) Medications Medication Sig Dispensed Refills Start Date [...] by 4 Tab 3 01/25/2019 Active TabIndications: Recurrent mouth TWICE herpes labialis DAILY for 1 day. ondansetron (ZOFRAN) 4 MG Take 1 Tab by 15 Tab 0 02/20/2019 Active Oral TABLET DISPERSIBLE mouth EVERY EIGHT HOURS NEEDED (nausea/vomitin g). pantoprazole (PROTONIX) Take 1 Tab by 30 Tab 2 03/12/2019 Active 40 MG Oral Tab mouth DAILY. ECIndications: Gastritis and gastroduodenitis linaCLOtide (LINZESS) 290 Take 290 mcg by 30 Cap 2 03/12/2019 Active MCG Oral CapIndications: mouth EVERY Chronic constipation MORNING. Magnesium 250 MG Oral Tab Take by mouth. 0 Active Cranberry 1000 MG Oral Take by mouth. 0 Active Cap [place] 3 1000 MG Oral Cap Take 1,120 [...] Oral TabIndications: DAILY. Acute non-recurrent maxillary sinusitis Additional Information Patient not taking. Reported on 04/25/2019 7:26 PM methylPREDNISolone, dose-yandy, (MEDROL) Take as directed 21 Tab 0 2019 Active 4 MG Oral Tablet Therapy PackIndications: Acute non-recurrent maxillary sinusitis Additional Information Patient not taking. Reported on 04/25/2019 7:26 PM cyclosporin (RESTASIS) 0.05 Place 1 Drop 180 Each 3 04/17/2019 Active % Ophthalmic in both eyes EmulsionIndications: Dry EVERY TWELVE eye HOURS. CEFDINIR PO Take 300 mg 0 Active by mouth TWICE DAILY. fluticasone (FLONASE) 50 [place] 2 1 Bottle 2 02/01/2019 MCG/ACT Nasal Sprays in 2020 (Reorder) SuspensionIndications: ETD nose DAILY. (Eustachian tube dysfunction), left, Hypertrophy of inferior nasal turbinate, Chronic rhinitis documented as of this encounter (statuses as of 04/26/2019) Active Problems Problem Noted Date Trace cataracts [...] as of this encounter (statuses as of 04/26/2019) Immunizations Name Administration Dates Next Due TDAP Vaccine 10/29/2008 documented as of this encounter Social History Tobacco Use Types Packs/Day Years Used Date Current Every Day Smoker Cigarettes 0.5 30 Smokeless Tobacco: Never Used Alcohol Use Drinks/Week oz/Week Comments Not Currently socially Sex Assigned at Date Recorded Not on file documented as of this encounter Last Filed Vital Signs Vital Sign Reading Time Taken Comments Blood Pressure 153/64 04/25/2019 10:44 PM EST Pulse 87 04/25/2019 10:44 PM EST Temperature 36.1 04/25/2019 10:44 PM EST C (97 F) Respiratory Rate 20 04/25/2019 10:44 PM EST Oxygen Saturation 100% 04/25/2019 10:44 PM EST Inhaled Oxygen Concentration - - Weight 68.9 kg (152 lb) 04/25/2019 7:22 PM EST Height 167.6 cm (5' 6") 04/25/2019 7:22 PM EST Body Mass Index 24.53 04/25/2019 7:22 PM EST documented in this encounter Discharge Instructions InstructionsSeamus Astorga DO - 04/25/2019Please follow-up with your PCP within the next week. Return the emergency department for new or worsening symptoms. AttachmentsThe following attachments cannot be sent through Care Everywhere.Costochondritis Discharge Instructions (Togolese)documented in this encounter Plan of Treatment Date Type Specialty Care Team Description 06/18/2019 Office Visit Neurology Rey Waters MD [address] [place] [address] [phone] 08/21/2019 Ocular Visit Optometry Robe Solo, OD [address] [place] [address] [phone] Health Maintenance Due Date Last Done Comments [...] Progress Work with your General Gissel Felder Trade Sales Assistant MD Krunal Note: This is an individualized treatment (frequent ED use) goal for Rosetta Bain: Please work with your Trade Sales Assistant, who will assist you in meeting your [...] ongoing basis. documented as of this encounter Procedures Procedure Name Priority Date/Time Associated Comments Diagnosis IN PT/ED 12 LEAD EKG STAT 04/25/2019 10:03 Results for this PM EST procedure are in the results section. US ABDOMEN LIMITED STAT 04/25/2019 8:48 Results for this PM EST procedure are in the results section. URINALYSIS (LAB) WITH STAT 04/25/2019 8:06 Results for this REFLEX CULTURE PM EST procedure are in the results section. CBC WITH DIFFERENTIAL STAT 04/25/2019 8:00 Results for this PM EST procedure are in the results section. LIPASE STAT 04/25/2019 8:00 Results for this PM EST procedure are in the results section. COMPREHENSIVE STAT 04/25/2019 8:00 Results for this METABOLIC PANEL PM EST procedure are in the results section. CARDIOLOGY TEST RESULT 04/25/2019 12:00 PM EST documented in this encounter Results IN PT/ED 12 LEAD EKG (04/25/2019 10:03 PM EST) Ventricular Rate 69 BPM CARDIOLOGY DEPARTMENT Atrial rate 69 BPM CARDIOLOGY DEPARTMENT P-R Interval 172 ms CARDIOLOGY DEPARTMENT QRS Duration 76 ms CARDIOLOGY DEPARTMENT Q-T Interval 402 ms CARDIOLOGY DEPARTMENT QTC Calculation 430 ms CARDIOLOGY (Bezet) DEPARTMENT P [place] 59 degrees CARDIOLOGY DEPARTMENT R [place] 49 degrees CARDIOLOGY DEPARTMENT T [place] 51 degrees CARDIOLOGY DEPARTMENT Diagnosis Line Normal sinus rhythm CARDIOLOGY Possible Left atrial enlargement DEPARTMENT Septal infarct , age undetermined When compared with ECG of 02-MAR-2019 08:36, Septal infarct is now Present Confirmed by KARL WATTS MD ([id number]) ([id number]) on 04/26/2019 10:38:53 PM Specimen Performing Organization Address City/State/Zipcode Phone Number CARDIOLOGY DEPARTMENT US ABDOMEN LIMITED (04/25/2019 8:48 PM EST) Specimen Impressions Performed At No sonographic findings of cholelithiasis or acute cholecystitis. Signed by Mikey Souza MD on 04/25/2019 9:07 PM Narrative Performed At Procedure(s): US ABDOMEN LIMITED Date of service: 04/25/2019 8:32 PM History: 58 years, Female, "RUQ pain, cholecystitis suspected" TECHNIQUE: A limited ultrasound of the abdomen was performed utilizing color and grayscale sonography. FINDINGS: Liver: The liver has a normal configuration and is normal in echogenicity and echotexture. There is no intrahepatic ductal dilatation. An intrahepatic mass is not sonographically depicted. The liver measures 16 cm at the mid-hepatic line, when measured accurately. Pancreas: The visualized pancreas is within normal limits. There is no pancreatic ductal dilatation. Vasculature: The main portal vein is patent, with antegrade and monophasic predominant flow upon spectral interrogation. Right kidney: The right kidney is normal in echogenicity and the cortical medullary differentiation is well maintained. There is no hydronephrosis or obstructing proximal nephrolithiasis. The right kidney measures 9.4 cm in length. Common bile duct: The common bile duct is nondilated. There is no obstructive choledocholithiasis. The common bile measures 4 mm in maximal diameter. Gallbladder: There are no intraluminal gallstones. There is no abnormal wall thickening or pericholecystic inflammation. Procedure Note Interface, Rad Results - 04/25/2019 9:09 PM EST Procedure(s): US ABDOMEN LIMITED Date of service: 04/25/2019 8:32 PM History: 58 years, Female, "RUQ pain, cholecystitis suspected" TECHNIQUE: A limited ultrasound of the abdomen was performed utilizing color and grayscale sonography. FINDINGS: Liver: The liver has a normal configuration and is normal in echogenicity and echotexture. There is no intrahepatic ductal dilatation. An intrahepatic mass is not sonographically depicted. The liver measures 16 cm at the mid-hepatic line, when measured accurately. Pancreas: The visualized pancreas is within normal limits. There is no pancreatic ductal dilatation. Vasculature: The main portal vein is patent, with antegrade and monophasic predominant flow upon spectral interrogation. Right kidney: The right kidney is normal in echogenicity and the cortical medullary differentiation is well maintained. There is no hydronephrosis or obstructing proximal nephrolithiasis. The right kidney measures 9.4 cm in length. Common bile duct: The common bile duct is nondilated. There is no obstructive choledocholithiasis. The common bile measures 4 mm in maximal diameter. Gallbladder: There are no intraluminal gallstones. There is no abnormal wall thickening or pericholecystic inflammation. IMPRESSION No sonographic findings of cholelithiasis or acute cholecystitis. Signed by Mikey Souza MD on 04/25/2019 9:07 PM URINALYSIS (LAB) WITH REFLEX CULTURE (04/25/2019 8:06 PM EST) Urine Color Yellow Yellow [facility] Urine Appearance Clear Clear [facility] Urine Glucose Negative Negative mg/dl [facility] Urine Bilirubin Negative Negative [facility] Urine Ketones Negative Negative [facility] Urine Specific <=1.005 1.005 - 1.030 [facility] Urine Blood Negative Negative [facility] Urine Ph 5.0 5.0 - 8.0 [facility] Urine Protein Negative Negative mg/dl [facility] Urine Urobilinogen 0.2 0.2 - 1.0 E.U./DL [facility] Urine Nitrite Negative Negative [facility] Urine Leukocytes Trace (A) Negative [facility] Specimen Urine - Urine specimen obtained by clean catch procedure (specimen) Performing Organization Address [facility] Phone Number [facility] [address] [place] [address] LIPASE (04/25/2019 8:00 PM EST) Lipase 98 23 - 300 U/L [facility] Specimen Blood - Blood specimen (specimen) Performing Organization Address [facility] [place] [address] CBC WITH DIFFERENTIAL (04/25/2019 8:00 PM EST) WBC Count 7.72 3.98 - 10.04 K/uL [facility] RBC Count 4.17 3.93 - 5.22 M/UL [facility] Hemoglobin 13.8 11.2 - 15.7 g/dL [facility] Hematocrit 41.5 34.1 - 44.9 % [facility] MCV 99.5 (H) 79.4 - 94.8 FL [facility] MCH 33.1 (H) 25.6 - 32.2 PG [facility] MCHC 33.3 32.2 - 35.5 g/dL [facility] Platelet Count 259 182 - 369 K/uL [facility] MPV 10.3 9.4 - 12.3 FL [facility] RDW 12.1 11.7 - 14.4 % [facility] Neutrophil % 47.7 34.0 - 71.1 % [facility] Lymphocyte % 40.4 19.3 - 51.7 % [facility] Monocyte % 9.7 4.7 - 12.5 % [facility] Eosinophil % 1.7 0.7 - 5.8 % [facility] Basophil % 0.4 0.1 - 1.2 % [facility] Neutrophil # 3.68 1.56 - 6.13 K/UL [facility] Lymphocyte # 3.12 1.18 - 3.74 K/UL [facility] Monocyte # 0.75 0.24 - 0.86 K/UL [facility] Eosinophil # 0.13 0.04 - 0.36 K/UL [facility] Basophil # 0.03 0.01 - 0.08 K/UL [facility] Immature Gran % 0.1 0.0 - 0.4 % [facility] Immature Gran # 0.01 0.00 - 0.03 K/uL [facility] Specimen Blood - Blood specimen (specimen) Performing Organization Address City/State/Zipcode Phone Number [facility] [address] [place] [phone] COMPREHENSIVE METABOLIC PANEL (04/25/2019 8:00 PM EST) Sodium 141 134 - 145 mmol/L [facility] Potassium 3.5 3.5 - 5.1 mmol/L [facility] Chloride 105 98 - 107 mmol/L [facility] CO2 28 22 - 30 mmol/L [facility] Calcium 9.4 8.3 - 10.1 mg/dl [facility] Albumin 4.3 3.5 - 5.0 g/dl [facility] BUN 17 7 - 17 mg/dl [facility] Creatinine 0.7 0.7 - 1.2 mg/dl [facility] Glucose 100 (H) 70 - 99 mg/dl [facility] Total Protein 7.4 6.3 - 8.2 g/dl [facility] Total Bilirubin 0.4 0.0 - 1.1 MG/DL [facility] AST 37 15 - 46 U/L [facility] ALT 37 9 - 52 U/L [facility] Alkaline 49 40 - 150 U/L [place] Phosphatase [facility] eGFR >60 See Interpretation [place] Comment: Below ml/min/1.73ml [facility] Estimated GFR Interpretation: Sq LABORATORY Above 60ml/min/1.73m2 = Normal Renal Function 30-59 ml/min/1.73m2 = Stage 3 Chronic Kidney Disease 15-29 ml/min/1.73m2 = Stage 4 Chronic Kidney Disease Less than 15 ml/min/1.73m2 = Stage 5 Chronic Kidney Disease The GFR value is calculated using the Modification of Diet in Renal Disease ( MDRD) Study Equation which can be found at: https://www.kidney.org/content/fkew-fpzpo-ipfltjjt BUN/Creatinine 24 (H) 6 - 22 RATIO [facility]ATORY Anion Gap 8 3 - 11 mmol/L [facility] A/G Ratio 1.4 0.8 - 2.0 ratio [facility] Specimen Blood - Blood specimen (specimen) Performing Organization Address City/State/Zipcode Phone Number [facility] [address] [place] [address] CARDIOLOGY TEST RESULT (04/25/2019 12:00 PM EST) Narrative Performed At documented in this encounter Visit Diagnoses Diagnosis Flank pain Abdominal pain, unspecified site 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 Blue t Cross/Blue Shield Guarantor Name Account Type Relation to Date of Phone Billing Patient Address Rosetta Bain Personal/Family 1960 [address] [phone] [place], [place] ([place]) [address] documented as of this encounter
--- OUTSIDE RECORDS SUMMARY | 2019-05-21 11:58 | XMS REPORT | Summary of Care ---
:1960 Author Organization [facility] Address [address] [place] [address] Care Team Providers Name Role Phone Janice Han Primary Care Provider Reason for Visit Reason Comments Check Up Encounter Details Date Type Department Care Team Description 05/20/2019 Office Visit [facility] Krunal Felder, Precordial chest pain (Primary Dx); [address] Garza MD Benign hypertension; [place], [place] [address] Jessica Pinon Intermittent palpitations; [address] [place], [place] Need for vaccination [phone] [id number] [phone] Allergies Active Allergy Reactions Severity Noted Date Comments Clindamycin Hcl Dermatologic Reaction Low 11/13/2018 Made pt very ill documented as of this encounter (statuses as of 05/20/2019) Medications Medication Sig Dispensed Refills Start End Date Status Date Multiple Vitamin Take by 0 Active (MULTI-VITAMIN PO) mouth DAILY. L-LYSINE PO Take 2 0 Active Tabs by mouth DAILY. Cyanocobalamin (B-12 PO) Take by 0 Active mouth. VALTREX 1 g Oral Take 2 4 Tab 3 Active TabIndications: Tabs by 9 Recurrent herpes mouth labialis TWICE DAILY for 1 day. ondansetron (ZOFRAN) 4 Take 1 Tab 15 Tab 0 Active MG Oral TABLET by mouth 9 DISPERSIBLE EVERY EIGHT HOURS NEEDED (nausea/vo miting). pantoprazole (PROTONIX) Take 1 Tab 30 Tab 2 Active 40 MG Oral Tab by mouth 9 ECIndications: Gastritis DAILY. and gastroduodenitis linaCLOtide (LINZESS) Take 290 30 Cap 2 Active 290 MCG Oral mcg by 9 CapIndications: Chronic mouth constipation EVERY MORNING. Magnesium 250 MG Oral Take by 0 Active Tab mouth. Cranberry 1000 MG Oral Take by 0 Active Cap mouth. Spearfish 3 1000 MG Oral Cap Take 1,120 0 Active mcg by mouth. Lactobacillus (PROBIOTIC Take by 0 Active ACIDOPHILUS PO) mouth. Aspirin 81 MG Oral Tab Take 81 mg 0 Active by mouth. cimetidine (TAGAMET) 300 Take 300 30 Tab 5 Active MG Oral TabIndications: mg by 0 Gastritis and mouth gastroduodenitis EVERY EVENING. cyclosporin (RESTASIS) Place 1 180 Each 3 Active 0.05 % Ophthalmic Drop in 0 EmulsionIndications: Dry both eyes eye EVERY TWELVE HOURS. fluticasone (FLONASE) 50 [place] 2 1 Bottle 2 Active MCG/ACT Nasal Sprays in 0 SuspensionIndications: nose ETD (Eustachian tube DAILY. dysfunction), left, Hypertrophy of inferior nasal turbinate, Chronic rhinitis Polyethylene Glycol 3350 Take 17 g 0 Active (MIRALAX PO) by mouth DAILY. hydrochlorothiazide Take 1 Cap 30 Cap 0 Active (HCTZ, ORETIC) 12.5 MG by mouth 0 Oral CapIndications: DAILY. Benign hypertension polyethylene glycol Take 17 g 527 g 5 05/20/19 Discontinued (MIRALAX) Oral by mouth 9 20 (Therapy PowderIndications: DAILY. Completed) Chronic constipation documented as of this encounter (statuses as of 05/20/2019) Active Problems Problem Noted Date Trace cataracts [...] as of this encounter (statuses as of 05/20/2019) Immunizations Name Administration Dates Next Due Influenza (IM) Preservative Free 05/20/2019 TDAP Vaccine 05/20/2019, 10/29/2008 documented as of this encounter Social History Tobacco Use Types Packs/Day Years Used Date Current Every Day Smoker Cigarettes 0.5 30 Smokeless Tobacco: Never Used Alcohol Use Drinks/Week oz/Week Comments Not Currently socially Sex Assigned at Date Recorded Not on file documented as of this encounter Last Filed Vital Signs Vital Sign Reading Time Taken Comments Blood Pressure 138/70 05/20/2019 8:45 AM EDT Pulse 97 05/20/2019 8:45 AM EDT Temperature 36.1 05/20/2019 8:45 AM EDT C (96.9 F) Respiratory Rate - - Oxygen Saturation 99% 05/20/2019 8:45 AM EDT Inhaled Oxygen Concentration - - Weight 67.1 kg (148 lb) 05/20/2019 8:45 AM EDT Height - - Body Mass Index 23.89 04/26/2019 10:53 AM EST documented in this encounter Progress Notes Krunal Felder MD - 05/20/2019 9:30 AM EDT PATIENT: Rosetta Bain : 1960 DATE OF SERVICE: 05/20/2019 Subjective SUBJECTIVE: Rosetta Bain is a 58-y.o. female who presents today with complaints of high blood pressure. Patient reports that they first noticed this a couple months ago. Reports that she has been having pressures in the 140s sytolic and high 70s diastolic. She reports that she has noted high readings at different doctor's office in the past few months. She also reports having palpitations intermittently. Denies any aggravating or relieving factors. States that it often happens at work when there is a lot going on around her, but it also happens at night sometimes. She reports that she has associated chest discomfort when this happens too. She is uncertain about feeling anxious when these episodes occur. She is agreeable to getting her flu and tetanus vaccines today. Past Medical History: Diagnosis Date ? Dizziness ? Endometriosis diag as teenager surgeries in [id number], four in total ? GERD (gastroesophageal reflux disease) 1998 did have scope which showed gastritis ? Headache disorder ? Nulliparity ? Otitis media ? Pneumonia ? Postmenopausal ? Sinusitis, chronic Current Outpatient Medications Medication Sig ? Aspirin 81 MG Oral Tab Take 81 mg by mouth. ? cimetidine (TAGAMET) 300 MG Oral Tab Take 300 mg by mouth EVERY EVENING. ? Cranberry 1000 MG Oral Cap Take by mouth. ? Cyanocobalamin (B-12 PO) Take by mouth. ? cyclosporin (RESTASIS) 0.05 % Ophthalmic Emulsion Place 1 Drop in both eyes EVERY TWELVE HOURS. ? fluticasone (FLONASE) 50 MCG/ACT Nasal Suspension Newhope 2 Sprays in nose DAILY. ? hydrochlorothiazide (HCTZ, ORETIC) 12.5 MG Oral Cap Take 1 Cap by mouth DAILY. ? L-LYSINE PO Take 2 Tabs by mouth DAILY. ? Lactobacillus (PROBIOTIC ACIDOPHILUS PO) Take by mouth. ? linaCLOtide (LINZESS) 290 MCG Oral Cap Take 290 mcg by mouth EVERY MORNING. ? Magnesium 250 MG Oral Tab Take by mouth. ? Multiple Vitamin (MULTI-VITAMIN PO) Take by mouth DAILY. ? Spearfish 3 1000 MG Oral Cap Take 1,120 mcg by mouth. ? ondansetron (ZOFRAN) 4 MG Oral TABLET DISPERSIBLE Take 1 Tab by mouth EVERY EIGHT HOURS NEEDED (nausea/vomiting). ? pantoprazole (PROTONIX) 40 MG Oral Tab EC Take 1 Tab by mouth DAILY. ? Polyethylene Glycol 3350 (MIRALAX PO) Take 17 g by mouth DAILY. ? VALTREX 1 g Oral Tab Take 2 Tabs by mouth TWICE DAILY for 1 day. No current facility-administered medications for this visit. Allergies Allergen Reactions ? Clindamycin Hcl Dermatologic Reaction Made pt very ill REVIEW OF SYSTEMS: Review of Systems Constitutional: Negative for chills and fever. Respiratory: Negative for shortness of breath. Cardiovascular: Positive for chest pain and palpitations. Negative for leg swelling. Gastrointestinal: Negative for nausea and vomiting. Skin: Negative for rash. Neurological: Positive for headaches. Negative for dizziness and focal weakness. Objective OBJECTIVE: BP 138/70 (BP Location: Right arm, Patient Position: Sitting) | Pulse 97 | Temp 96.9 F (36.1 C) (Tympanic) | Wt 148 lb (67.1 kg) | SpO2 99% | BMI 23.89 kg/m Physical Exam Physical Exam Vitals signs and nursing note reviewed. Constitutional: : NAD. Appears somewhat anxious. Normal appearance. HENT: Normocephalic and atraumatic. Bilateral External ears normal. Eyes: No scleral icterus. Conjunctivae normal. Cardiovascular: Tachycardic. regular rhythm. Normal pulses. Normal heart sounds. No murmurs Pulmonary: Effort is normal. Normal breath sounds. No wheezing. Abdominal: Bowel sounds are normal. Abdomen is soft. Musculoskeletal: no edema in BLE. Skin: Warm and dry EKG in office showed a normal HEART RATE, with normal sinus rhythm. No ischemic changes noted. No Q waves. Good R wave progression. ASSESSMENT: ICD-9-CM ICD-10-CM 1. Precordial chest pain 786.51 R07.2 2. Benign hypertension 401.1 I10 3. Intermittent palpitations 785.1 R00.2 4. Need for vaccination V05.9 Z23 PLAN: 1. Precordial chest pain EKG in office obtained; results as above. Cannot rule out the possibility of acute anxiety. Consider cardiac etiology given her family historyof CAD (mother has had MYOCARDIAL INFARCTION X 2 in her 70s) Will await lab results. 2. Benign hypertension Will monitor. Start HCTZ today. Will obtain repeat BMP in 3 weeks. - hydrochlorothiazide (HCTZ, ORETIC) 12.5 MG Oral Cap; Take 1 Cap by mouth DAILY. Dispense: 30 Cap;Refill: 0 3. Intermittent palpitations Possibly anxiety related. Will obtain the following labwork at this time: - THYROID STIMULATING HORMONE; Future - FREE T4; Future - BASIC METABOLIC PANEL; Future - MAGNESIUM LEVEL; Future - AMBULATORY 12 LEAD EKG (GLOBAL) 4. Need for vaccination Administered today: - [place] TET, DIP & ACEL PERTUSSIS(DX Z23) - [place] FLU VACCINE PRES FREE 6MOS+ There are no Patient Instructions on file for this visit. Author: Krunal Felder MD 05/20/2019 09:19 documented in this encounter Plan of Treatment Date Type Specialty Care Team Description 06/11/2019 Office Visit [facility] Krunal Felder MD [address] [place] [address] [phone] 06/18/2019 Office Visit Neurology Rey Waters MD [address] [address] 08/21/2019 Ocular Visit Optometry Robe Solo, OD [address] [place] [address] Name Type Priority Associated Diagnoses Date/Time THYROID STIMULATING Lab Routine Intermittent palpitations 05/20/2019 9:57 AM HORMONE EDT FREE T4 Lab Routine Intermittent palpitations 05/20/2019 9:57 AM EDT BASIC METABOLIC PANEL Lab Routine Intermittent palpitations 05/20/2019 9: 57 AM EDT MAGNESIUM LEVEL Lab Routine Intermittent palpitations 05/20/2019 9:57 AM EDT Name Type Priority Associated Diagnoses Order Schedule THYROID STIMULATING Lab Routine Intermittent palpitations Expected: 2019 HORMONE (Approximate), Expires: 05/19/2020 FREE T4 Lab Routine Intermittent palpitations Expected: 05/20/2019 (Approximate), Expires: 05/19/2020 BASIC METABOLIC PANEL Lab Routine Intermittent palpitations Expected: 05/19 (Approximate), Expires: 05/19/2020 MAGNESIUM LEVEL Lab Routine Intermittent palpitations Expected: 05/20/2019 (Approximate), Expires: 05/19/2020 AMBULATORY 12 LEAD EKG EKG Routine Intermittent palpitations Ordered: 05/19 (GLOBAL) Health Maintenance Due Date Last Done Comments [...] Progress Work with your General Gissel Felder Data Consultant MD Krunal Note: This is an individualized treatment (frequent ED use) goal for Rosetta Bain: Please work with your Data Consultant, who will assist you in meeting your [...] filedocumented in this encounter Visit Diagnoses Diagnosis Precordial chest pain Precordial pain Benign hypertension Essential hypertension, benign Intermittent palpitations Need for vaccination Need for prophylactic vaccination and inoculation against unspecified single disease documented in this encounter Insurance Payer Benefit Plan / Subscriber ID Effective Dates Phone Address Type Group [facility] [id number] [address] [place] t Cross/Blue Shield Guarantor Name Account Type Relation to Date of Phone Billing Patient Address Rosetta Bain Personal/Family 1960 [address] [phone] [place], [place] ([place]) [address] documented as of this encounter"
--- OUTSIDE RECORDS SUMMARY | 2019-05-21 11:58 | XMS REPORT | Summary of Care ---
:1960 Author Organization [facility] Address [address] [place] [address] Care Team Providers Name Role Phone Janice Han Primary Care Provider Reason for Visit Reason Comments Sinus Problem x yesterday and is getting worse. OTC-Tylenol with temp relief. Diarrhea Cough productive. Encounter Details Date Type Department Care Team Description 05/06/2019 Office Visit [facility] Bekah Ochoa, Cough (Primary Dx); [address] [employer] Viral gastroenteritis; [place] [address] Viral URI with cough [phone] [place] [address] [phone] Allergies Active Allergy Reactions Severity Noted Date Comments Clindamycin Hcl Dermatologic Reaction Low 11/13/2018 Made pt very ill documented as of this encounter (statuses as of 05/06/2019) Medications Medication Sig Dispensed Refills Start End Date Status Date Multiple Vitamin Take by 0 Active (MULTI-VITAMIN PO) mouth DAILY. L-LYSINE PO Take 2 Tabs 0 Active by mouth DAILY. Cyanocobalamin (B-12 Take by 0 Active PO) mouth. polyethylene glycol Take 17 g by 527 g 5 Active (MIRALAX) Oral mouth DAILY. 9 PowderIndications: Chronic constipation VALTREX 1 g Oral Take 2 Tabs 4 Tab 3 Active TabIndications: by mouth 9 Recurrent herpes TWICE DAILY labialis for 1 day. ondansetron (ZOFRAN) Take 1 Tab by 15 Tab 0 Active 4 MG Oral TABLET mouth EVERY 9 DISPERSIBLE EIGHT HOURS NEEDED (nausea/vomit ing). pantoprazole Take 1 Tab by 30 Tab 2 Active (PROTONIX) 40 MG Oral mouth DAILY. 9 Tab ECIndications: Gastritis and gastroduodenitis linaCLOtide (LINZESS) Take 290 mcg 30 Cap 2 Active 290 MCG Oral by mouth 9 CapIndications: EVERY Chronic constipation MORNING. Magnesium 250 MG Oral Take by 0 Active Tab mouth. Cranberry 1000 MG Take by 0 Active Oral Cap mouth. Greenwald 3 1000 MG Oral Take 1,120 0 Active Cap mcg by mouth. Lactobacillus Take by 0 Active (PROBIOTIC mouth. ACIDOPHILUS PO) Aspirin 81 MG Oral Take 81 mg by 0 Active Tab mouth. cimetidine (TAGAMET) Take 300 mg 30 Tab 5 Active 300 MG Oral by mouth 0 TabIndications: EVERY Gastritis and EVENING. gastroduodenitis cyclosporin Place 1 Drop 180 Each 3 Active (RESTASIS) 0.05 % in both eyes 0 Ophthalmic EVERY TWELVE EmulsionIndications: HOURS. Dry eye fluticasone (FLONASE) Blakeslee 2 1 Bottle 2 Active 50 MCG/ACT Nasal Sprays in 0 SuspensionIndications nose DAILY. : ETD (Eustachian tube dysfunction), left, Hypertrophy of inferior nasal turbinate, Chronic rhinitis tobramycin-dexamethas Place 1 Drop 1 Bottle 1 05/06/19 Discontinued one (TOBRADEX) in right eye 0 20 (Therapy 0.3-0.1 % Ophthalmic THREE TIMES Completed) SuspensionIndications DAILY. : Viral conjunctivitis of right eye amoxicillin-clavulani Take 1 Tab by 20 Tab 0 05/06/19 Discontinued c acid (AUGMENTIN) mouth TWICE 0 20 (Therapy 875-125 MG Oral DAILY. Completed) TabIndications: Acute non-recurrent maxillary sinusitis methylPREDNISolone, Take as 21 Tab 0 05/06/19 Discontinued dose-yandy, (MEDROL) 4 directed 0 20 (Therapy MG Oral Tablet Completed) Therapy PackIndications: Acute non-recurrent maxillary sinusitis CEFDINIR PO Take 300 mg 0 05/06/19 Discontinued by mouth 20 (Therapy TWICE DAILY. Completed) documented as of this encounter (statuses as of 05/06/2019) Active Problems Problem Noted Date Trace cataracts [...] as of this encounter (statuses as of 05/06/2019) Immunizations Name Administration Dates Next Due TDAP Vaccine 10/29/2008 documented as of this encounter Social History Tobacco Use Types Packs/Day Years Used Date Current Every Day Smoker Cigarettes 0.5 30 Smokeless Tobacco: Never Used Tobacco Cessation: Ready to Quit: No Alcohol Use Drinks/Week oz/Week Comments Not Currently socially Sex Assigned at Date Recorded Not on file documented as of this encounter Last Filed Vital Signs Vital Sign Reading Time Taken Comments Blood Pressure 132/66 05/06/2019 8:58 AM EST Pulse 89 05/06/2019 8:58 AM EST Temperature 36.2 05/06/2019 8:58 AM EST C (97.2 F) Respiratory Rate - - Oxygen Saturation 99% 05/06/2019 8:58 AM EST Inhaled Oxygen Concentration - - Weight 66.7 kg (147 lb) 05/06/2019 8:58 AM EST Height - - Body Mass Index 23.73 04/26/2019 10:53 AM EST documented in this encounter Progress Notes Bekah Ochoa NP - 05/06/2019 8:50 AM EST PATIENT: Rosetta Bain : 1960 DATE OF SERVICE: 05/06/2019 CHIEF COMPLAINT: Chief Complaint Patient presents with ? Sinus Problem x yesterday and is getting worse. OTC-Tylenol with temp relief. ? Diarrhea ? Cough productive. Subjective HISTORY OF PRESENT ILLNESS: Rosetta Bain is a 58-y.o. female. No flu vaccine this year; Unknown exposure; Sinus Problem The history is provided by the patient. No lawn care technician was used. This is a new problem. Thecurrent episode started yesterday. The problem has been gradually worsening. There has been no fever. Associated symptoms include chills , sweats, congestion, ear pain (left ear), sinus pressure, cough (coughing up brown), shortness of breath (when taking a deep breath - pain in center of chest when takes a deep breath;), facial tenderness, drainage and post nasal drip. Pertinent negatives include no sore throat. She has tried acetaminophen for the symptoms. Past Medical History: Diagnosis Date ? Dizziness ? Endometriosis diag as teenager surgeries in [id number], four in total ? GERD (gastroesophageal reflux disease) 1998 did have scope which showed gastritis ? Headache disorder ? Nulliparity ? Otitis media ? Pneumonia ? Postmenopausal ? Sinusitis, chronic Family History Problem Relation Age of Onset ? Cancer Mother breast cancer s/p mastectomy ? Genitourinary () Mother ? Hypertension Mother ? Breast Cancer Mother 74 ? No Known Problems Brother ? No Known Problems Brother ? No Known Problems Brother ? No Known Problems Brother ? No Known Problems Brother ? No Known Problems Father ? No Known Problems Sister ? No Known Problems Daughter ? No Known Problems Maternal Aunt ? No Known Problems Paternal Aunt ? No Known Problems Maternal Grandmother ? No Known Problems Maternal Grandfather ? No Known Problems Paternal Grandmother ? No Known Problems Paternal Grandfather ? No Known Problems Other ? Ovarian Cancer No family history ? Uterine Cancer No family history ? Cervical Cancer No family history Current Outpatient Medications Medication Sig ? Aspirin [...] ? fluticasone (FLONASE) 50 MCG/ACT Nasal Suspension Blakeslee 2 Sprays in nose DAILY. ? L-LYSINE PO Take 2 Tabs by mouth DAILY. ? Lactobacillus (PROBIOTIC ACIDOPHILUS PO) Take by mouth. ? linaCLOtide (LINZESS) 290 MCG Oral Cap Take 290 mcg by mouth EVERY MORNING. ? Magnesium 250 MG Oral Tab Take by mouth. ? Multiple Vitamin (MULTI-VITAMIN PO) Take by mouth DAILY. ? Greenwald 3 1000 MG Oral Cap Take 1,120 mcg by mouth. ? ondansetron (ZOFRAN) 4 MG Oral TABLET DISPERSIBLE Take 1 Tab by mouth EVERY EIGHT HOURS NEEDED (nausea/vomiting). ? pantoprazole (PROTONIX) 40 MG Oral Tab EC Take 1 Tab by mouth DAILY. ? polyethylene glycol (MIRALAX) Oral Powder Take 17 g by mouth DAILY. ? VALTREX 1 g Oral Tab Take 2 Tabs by mouth TWICE DAILY for 1 day. No current facility-administered medications for this visit. Allergies Allergen Reactions ? Clindamycin Hcl Dermatologic Reaction Made pt very ill Social History Socioeconomic History ? Marital status: Single Spouse name: Not on file ? Number of children: Not on file ? Years of education: Not on file ? Highest education level: Not on file Occupational History ? Not on file Social Needs ? Financial resource strain: Not on file ? Food insecurity Worry: Not on file Inability: Not on file ? Transportation needs Medical: Not on file Non-medical: Not on file Tobacco Use ? Smoking status: Current Every Day Smoker Packs/day: 0.50 Years: 30.00 Pack years: 15.00 Types: Cigarettes ? Smokeless tobacco: Never Used Substance and Sexual Activity ? Alcohol use: Not Currently Comment: socially ? Drug use: No ? Sexual activity: Not on file Lifestyle ? Physical activity Days per week: Not on file Minutes per session: Not on file ? Stress: Not on file Relationships ? Social connections Talks on phone: Not on file Gets together: Not on file Attends caodaism service: Not on file Active member of club or organization: Not on file Attends meetings of clubs or organizations: Not on file Relationship status: Not on file ? Intimate partner violence Fear of current or ex partner: Not on file Emotionally abused: Not on file Physically abused: Not on file Forced sexual activity: Not on file Other Topics Concern ? Back Care Not Asked ? Bike Helmet Not Asked ? Blood Transfusions Not Asked ? Caffeine Concern Not Asked ? Exercise Not Asked ? Hobby Hazards Not Asked ? International Travel Not Asked ? Service Not Asked ? Occupational Exposure Not Asked ? Seat Belt Not Asked ? Self-Exams Not Asked ? Sleep Concern Not Asked ? Special Diet Not Asked ? Stress Concern Not Asked ? Weight Concern Not Asked Social History Narrative Works for [employer] REVIEW OF SYSTEMS: Review of Systems Constitutional: Positive for chills and malaise/fatigue. HENT: Positive for congestion, ear pain (left ear) and sinus pressure. Negative for sore throat. Respiratory: Positive for cough (coughing up brown) and shortness of breath ( when taking a deep breath - pain in center of chest when takes a deep breath;). Negative for wheezing. Cardiovascular: Negative for chest pain and palpitations. Feels chest heaviness Gastrointestinal: Positive for diarrhea (12 times - watery/mucous; improved today;), nausea and vomiting (yesterday morning - couple times in the morning;). Neurological: Positive for headaches. Objective PHYSICAL EXAM: VITALS: BP 132/66 (BP Location: Left arm, Patient Position: Sitting) | Pulse 89 | Temp 97.2 F(36.2 C) (Tympanic) | Wt 147 lb (66.7 kg) | SpO2 99% | No | BMI 23.73 kg/m Body mass index is 23.73 kg/m. Physical Exam Vitals signs and nursing note reviewed. Constitutional: General: She is awake. She is not in acute distress. Appearance: She is well-developed and well-groomed. She is ill-appearing ( acutely ill, but comfortable; speech is clear and fluent;). HENT: Head: Normocephalic. Right Ear: Tympanic membrane, ear canal and external ear normal. Left Ear: Tympanic membrane, ear canal and external ear normal. Nose: Congestion present. No rhinorrhea. Mouth/Throat: Lips: [place]. Mouth: Mucous membranes are moist. Pharynx: Uvula midline. Posterior oropharyngeal erythema (very mildly) present. Eyes: General: No scleral icterus. Conjunctiva/sclera: Conjunctivae normal. Neck: Musculoskeletal: Neck supple. Cardiovascular: Rate and Rhythm: Normal rate and regular rhythm. Heart sounds: Normal heart sounds. No murmur. No friction rub. No gallop. Pulmonary: Effort: Pulmonary effort is normal. No respiratory distress. Breath sounds: Normal breath sounds. No wheezing, rhonchi or rales. Abdominal: General: Abdomen is flat. Bowel sounds are normal. There is no distension. Palpations: Abdomen is soft. There is no mass. Tenderness: There is abdominal tenderness (mostly right lower quadrant;). There is guarding. There is no right CVA tenderness, left CVA tenderness or rebound. Hernia: No hernia is present. Lymphadenopathy: Cervical: No cervical adenopathy. Skin: General: Skin is warm and dry. Neurological: Mental Status: She is alert. Psychiatric: Mood and Affect: Mood normal. Behavior: Behavior is cooperative. ASSESSMENT / IMPRESSION: ICD-9-CM ICD-10-CM 1. Cough 786.2 R05 XR CHEST 2 VIEW PA AND LATERAL (STANDARD) 2. Viral gastroenteritis 008.8 A08.4 3. Viral URI with cough 465.9 J06.9 B97.89 Plan Acute vs. Chronic abdominal pain, vomiting and diarrhea; Patient has seen GI, been to ER for similar symptoms, but sounds like it is an acute flare up of viral gastroenteritis. To help keep yourself more comfortable and prevent dehydration while you recover , try the following: Let your stomach settle. Stop eating solid foods for a few hours. Try sucking on ice chips or taking small sips of water. You might also try drinking clear soda, clear broths or non caffeinated sports drinks. Drink plenty of fluids every day, taking small, frequentsips. Ease back into eating. Gradually begin with BRAT diet, then gradually advance to bland, bthy-sw-kpccsc foods, such as soda crackers, toast, gelatin, bananas, rice and chicken. Stop eating if your nausea returns. Avoid certain foods and substances until you feel better. These include dairy products, caffeine, alcohol, nicotine, and fatty or highly seasoned foods. Get plenty of rest. The illness and dehydration may have made you weak and tired. Be cautious with medications. Use of any medications, such as ibuprofen (Advil , Motrin IB, others),sparingly if at all. They can make your stomach more upset. Use acetaminophen (Tylenol, others) cautiously; it sometimes can cause liver toxicity, especially in children. Don't give aspirin to children or pain reliever or fever motor boss discuss with your child's field installation technician. Encouraged good hand hygiene. Plenty of fluids. Rest. Continue to monitor temperature. Can continue to use Tylenol as needed for fever. Humidifier/vaporizer. Encouraged nasal saline drops for nasal congestion. If persists or worsens, contact PCP or return to urgent care. Author: Bekah Ochoa NP 05/06/2019 11:25 documented in this encounter Plan of Treatment Date Type Specialty Care Team Description 06/18/2019 Office Visit Neurology Rey Waters MD [address] [place] [address] [phone] 08/21/2019 Ocular Visit Optometry Robe Solo, OD [address] [place] [address] [phone] Health Maintenance Due Date Last Done Comments [...] Progress Work with your General Gissel Felder Manufacturing Test Technician MD Krunal Note: This is an individualized treatment (frequent ED use) goal for Rosetta Bain: Please work with your Manufacturing Test Technician, who will assist you in meeting your [...] basis. documented as of this encounter Results XR CHEST 2 VIEW PA AND LATERAL (STANDARD) (05/06/2019 10:13 AM EST) Specimen Impressions Performed At Unremarkable exam. Urgency: Routine. This is a routine medical imaging report. Signed by Chinmay Barbosa MD on 05/06/2019 10:26 AM Narrative Performed At Procedure(s): XR CHEST 2 VIEW PA AND LATERAL (STANDARD) Date of service: 05/06/2019 9:47 AM Provided clinical information: 58 years, Female, "cough" COMPARISON: Chest x-ray 01/30/2019 FINDINGS: Clear lungs. Unremarkable cardiomediastinal silhouette, bony thorax and pleura. Procedure Note Interface, Rad Results - 05/06/2019 10:28 AM EST Procedure(s): XR CHEST 2 VIEW PA AND LATERAL (STANDARD) Date of service: 05/06/2019 9:47 AM Provided clinical information: 58 years, Female, "cough" COMPARISON: Chest x-ray 01/30/2019 FINDINGS: Clear lungs. Unremarkable cardiomediastinal silhouette, bony thorax and pleura. IMPRESSION Unremarkable exam. Urgency: Routine. This is a routine medical imaging report. Signed by Chinmay Barbosa MD on 05/06/2019 10:26 AM documented in this encounter Visit Diagnoses Diagnosis Cough Viral gastroenteritis Intestinal infection due to other organism, not elsewhere classified Viral URI with cough Acute upper respiratory infections of unspecified site documented in this encounter Insurance Payer Benefit Plan / Subscriber ID Effective Dates Phone Address Type Group BS [facility] [id number] 2017-[place] Blue t [employer]/Blue Shield Guarantor Name Account Type Relation to Date of Phone Billing Patient Address Patricia Bainmagaly Bernal Personal/Family 1960 [phone] [phone] [place], [place] (Work) [id number] documented as of this encounter
--- OUTSIDE RECORDS SUMMARY | 2019-05-21 11:58 | XMS REPORT | Summary of Care ---
:1960 Author Organization [facility] Address [address] [place] [address] Care Team Providers Name Role Phone Janice Han Primary Care Provider Reason for Visit Reason Comments Sinus Problem started couple weeks, OTC sudafed, nasal spray Encounter Details Date Type Department Care Team Description 04/12/2019 Office Visit [facility] Bekah Ochoa, Acute non-recurrent [address] [employer] [place] [address] (Primary Dx) [phone] [place] [address] [phone] Allergies Active Allergy Reactions Severity Noted Date Comments Clindamycin Hcl Dermatologic Reaction Low 11/13/2018 Made pt very ill documented as of this encounter (statuses as of 04/12/2019) Medications Medication Sig Dispensed Refills Start End [...] herpes TWICE DAILY labialis for 1 day. fluticasone (FLONASE) Nolan 2 1 Bottle 2 Active 50 MCG/ACT Nasal Sprays in 9 SuspensionIndications nose DAILY. : ETD (Eustachian tube dysfunction), left, Hypertrophy of inferior nasal turbinate, Chronic rhinitis ondansetron (ZOFRAN) Take 1 Tab by 15 [...] Take by 0 Active Oral Cap mouth. [place] 3 1000 MG Oral Take 1,120 0 Active Cap mcg by mouth. Lactobacillus Take by 0 Active (PROBIOTIC mouth. ACIDOPHILUS PO) tobramycin-dexamethas Place 1 Drop 1 Bottle 1 Active one (TOBRADEX) in right eye 0 0.3-0.1 % Ophthalmic THREE TIMES SuspensionIndications DAILY. : Viral conjunctivitis of right eye Aspirin 81 MG Oral Take 81 mg by 0 Active Tab mouth. cimetidine (TAGAMET) Take 300 mg 30 Tab 5 Active 300 MG Oral by mouth 0 TabIndications: EVERY Gastritis and EVENING. gastroduodenitis amoxicillin-clavulani Take 1 Tab by 20 Tab 0 Active c acid (AUGMENTIN) mouth TWICE 0 875-125 MG Oral DAILY. TabIndications: Acute non-recurrent maxillary sinusitis methylPREDNISolone, Take as 21 Tab 0 Active dose-yandy, (MEDROL) 4 directed 0 MG Oral Tablet Therapy PackIndications: Acute non-recurrent maxillary sinusitis doxycycline Take 100 mg 0 04/12/19 Discontinued (VIBRAMYCIN) 100 MG by mouth 20 (Therapy Oral Tab TWICE DAILY. Completed) documented as of this encounter (statuses as of 04/12/2019) Active Problems Problem Noted Date Trace cataracts [...] as of this encounter (statuses as of 04/12/2019) Immunizations Name Administration Dates Next Due TDAP [...] Sign Reading Time Taken Comments Blood Pressure 128/62 04/12/2019 7:49 AM EST Pulse 94 04/12/2019 7:49 AM EST Temperature 37.2 04/12/2019 7:49 AM EST C (98.9 F) Respiratory Rate - - Oxygen Saturation 99% 04/12/2019 7:49 AM EST Inhaled Oxygen Concentration - - Weight 69.1 kg (152 lb 6.4 oz) 04/12/2019 7:49 AM EST Height - - Body Mass Index 24.6 04/10/2019 8:40 AM EST documented in this encounter Progress Notes Bekah Ochoa NP - 04/12/2019 7:50 AM EST PATIENT: Rosetta Bain : 1960 DATE OF SERVICE: 04/12/2019 CHIEF COMPLAINT: Chief Complaint Patient presents with Sinus Problem started couple weeks, OTC sudafed, nasal spray Subjective HISTORY OF PRESENT ILLNESS: Rosetta Bain is a 58-y.o. female. Sinus Problem The history is provided by the patient. No language assistant was used. This is a new problem. Episode onset: 2 weeks. The problem has been gradually worsening. There has been no fever. Associated symptoms include chills, sweats, congestion, ear pain (left ear), sinus pressure, cough, facial tenderness, drainage and post nasal drip. Pertinent negatives include no sore throat and no shortness of breath. Treatments tried: Sudafed, Mucinex, flonase; Past Medical History: Diagnosis Date Dizziness Endometriosis diag as teenager surgeries in [id number], four in total GERD (gastroesophageal reflux disease) 1998 did have scope which showed gastritis Headache disorder Nulliparity Otitis media Pneumonia Postmenopausal Sinusitis, chronic Family History Problem Relation Age of Onset Cancer Mother breast cancer s/p mastectomy Genitourinary () Mother Hypertension Mother Breast Cancer Mother 74 No Known Problems Brother No Known Problems Brother No Known Problems Brother No Known Problems Brother No Known Problems Brother No Known Problems Father No Known Problems Sister No Known Problems Daughter No Known Problems Maternal Aunt No Known Problems Paternal Aunt No Known Problems Maternal Grandmother No Known Problems Maternal Grandfather No Known Problems Paternal Grandmother No Known Problems Paternal Grandfather No Known Problems Other Ovarian Cancer No family history Uterine Cancer No family history Cervical Cancer No family history Current Outpatient Medications Medication Sig amoxicillin-clavulanic acid (AUGMENTIN) 875-125 MG Oral Tab Take 1 Tab by mouth TWICE DAILY. Aspirin 81 MG Oral Tab Take 81 mg by mouth. cimetidine (TAGAMET) 300 MG Oral Tab Take 300 mg by mouth EVERY EVENING. Cranberry 1000 MG Oral Cap Take by mouth. Cyanocobalamin (B-12 PO) Take by mouth. fluticasone (FLONASE) 50 MCG/ACT Nasal Suspension Nolan 2 Sprays in nose DAILY. L-LYSINE PO Take 2 Tabs by mouth DAILY. Lactobacillus (PROBIOTIC ACIDOPHILUS PO) Take by mouth. linaCLOtide (LINZESS) 290 MCG Oral Cap Take 290 mcg by mouth EVERY MORNING. Magnesium 250 MG Oral Tab Take by mouth. methylPREDNISolone, dose-yandy, (MEDROL) 4 MG Oral Tablet Therapy Pack Take as directed Multiple Vitamin (MULTI-VITAMIN PO) Take by mouth DAILY. [place] 3 1000 MG Oral Cap Take 1,120 [...] pt very ill Social History Socioeconomic History Marital status: Single Spouse name: Not on file Number of children: Not on file Years of education: Not on file Highest education level: Not on file Occupational History Not on file Social Needs Financial resource strain: Not on file Food insecurity Worry: Not on file Inability: Not on file Transportation needs Medical: Not on file Non-medical: Not on file Tobacco Use Smoking status: Current Every Day Smoker Packs/day: 0.50 Years: 30.00 Pack years: 15.00 Types: Cigarettes Smokeless tobacco: Never Used Substance and Sexual Activity Alcohol use: Not Currently Comment: socially Drug use: No Sexual activity: Not on file Lifestyle Physical activity Days per week: Not on file Minutes per session: Not on file Stress: Not on file Relationships Social connections Talks on phone: Not on file Gets together: Not on file Attends denominational service: Not on file Active member of club or organization: Not on file Attends meetings of clubs or organizations: Not on file Relationship status: Not on file Intimate partner violence Fear of current or ex partner: Not on file Emotionally abused: Not on file Physically abused: Not on file Forced sexual activity: Not on file Other Topics Concern Back Care Not Asked Bike Helmet Not Asked Blood Transfusions Not Asked Caffeine Concern Not Asked Exercise Not Asked Hobby Hazards Not Asked International Travel Not Asked Service Not Asked Occupational Exposure Not Asked Seat Belt Not Asked Self-Exams Not Asked Sleep Concern Not Asked Special Diet Not Asked Stress Concern Not Asked Weight Concern Not Asked Social History Narrative Works [employer] REVIEW OF SYSTEMS: Review of Systems Constitutional: Positive for chills. HENT: Positive for congestion, ear pain (left ear) and sinus pressure. Negative for sore throat. Respiratory: Positive for cough. Negative for shortness of breath and wheezing. Feels chest heaviness Gastrointestinal: Positive for nausea. Negative for diarrhea and vomiting. Neurological: Positive for headaches. Negative for dizziness. Objective PHYSICAL EXAM: VITALS: BP 128/62 (BP Location: Left arm, Patient Position: Sitting) | Pulse 94 | Temp 98.9 F(37.2 C) (Tympanic) | Wt 152 lb 6.4 oz (69.1 kg) | SpO2 99% | BMI 24.60 kg/m Body mass index is 24.6 kg/m. Physical Exam Constitutional: General: She is awake. She is not in acute distress. Appearance: She is well-developed and well-groomed. She is ill-appearing ( acutely ill, but comfortable; speech is mildly hoarse;). HENT: Head: Normocephalic. Right Ear: Ear canal and external ear normal. Tympanic membrane is bulging. Left Ear: Ear canal and external ear normal. Tympanic membrane is bulging. Nose: Congestion and rhinorrhea present. Rhinorrhea is purulent. Right Sinus: Maxillary sinus tenderness present. No frontal sinus tenderness. Left Sinus: Maxillary sinus tenderness present. No frontal sinus tenderness. Mouth/Throat: Lips: [place]. Mouth: Mucous membranes are moist. Pharynx: Uvula midline. Posterior oropharyngeal erythema (mildly with thin, white post nasal drip) present. Eyes: General: No scleral icterus. Conjunctiva/sclera: Conjunctivae normal. Neck: Musculoskeletal: Neck supple. Cardiovascular: Rate and Rhythm: Normal rate and regular rhythm. Heart sounds: Normal heart sounds. No murmur. No friction rub. No gallop. Pulmonary: Effort: Pulmonary effort is normal. No respiratory distress. Breath sounds: Normal breath sounds. No stridor. No wheezing, rhonchi or rales. Lymphadenopathy: Cervical: No cervical adenopathy. Skin: General: Skin is warm and dry. Neurological: Mental Status: She is alert. Psychiatric: Mood and Affect: Mood normal. Behavior: Behavior is cooperative. ASSESSMENT / IMPRESSION: ICD-9-CM ICD-10-CM 1. Acute non-recurrent maxillary sinusitis 461.0 J01.00 amoxicillin-clavulanic acid (AUGMENTIN) 875-125 MG Oral Tab methylPREDNISolone, dose-yandy, (MEDROL) 4 MG Oral Tablet Therapy Pack Plan Drink plenty of fluids. Loratadine or Zyrtec daily. Flonase or Nasonex daily. Normal saline nasal spray to irrigate nasal passages first thing in the morning before using Flonase- can use normal saline to irrigate 2-3 times per day as needed. Warm compresses to face as needed. Massage sinuses while in hot shower. Tylenol/ibuprofen as needed. Take antibiotic until gone. Take medrol dose pack with food. If symptoms persist or worsen, contact PCP, return to urgent care. Author: Bekah Ochoa NP 04/12/2019 10:06 documented in this encounter Plan of Treatment [...] Progress Work with your General Gissel Felder [employer] Supervisor MD Krunal Note: This is an individualized treatment (frequent ED use) goal for Rosetta Bain: Please work with your [employer] Supervisor, who will assist you in meeting your goals of care. Regular appointments with primary care Lifestyle No Krunal Felder MD provider (PCP) Note: This is an individualized lifestyle goal for Rosetta Bain: Please schedule regular visits with your primary care provider (PCP). Care provided in your PCP's office can help reduce your need for additional trips to the Emergency Room. Take all prescribed medications as Self-management Krunal Franco MD directed Note: This is an individualized self-management goal for Rosetta Bernal Taya: Please take all prescribed medications as directed. [...] filedocumented in this encounter Visit Diagnoses Diagnosis Acute non-recurrent maxillary sinusitis documented in this encounter Insurance Payer Benefit Plan / Subscriber ID Effective Dates Phone Address Type Group [facility] xxxxxxxxxxxxxxx 2017-[place] Blue t [employer]/Blue Shield Guarantor Name Account Type Relation to Date of Phone Billing Patient Address MessisidRosetta Bernal Personal/Family 1960 [address] [phone] [place], [place] (Work) [address] documented as of this encounter"
--- OUTSIDE RECORDS SUMMARY | 2019-05-21 11:58 | XMS REPORT | Summary of Care ---
:1960 Author Organization [facility] Address [address] [address] Care Team Providers Name Role Phone Janice Han Primary Care Provider Reason for Referral MRI/CAT/PET Scan (Routine) Status Reason Specialty Diagnoses / Procedures Referred By Contact Referred To Contact Closed Diagnoses Cerebral aneurysm, nonruptured Merna Isaacs MD [facility] Procedures CT HEAD ANGIOGRAPHY [facility] [address] [place] [place] [address] [place] [address] Phone: [phone] Reason for Visit MRI/CAT/PET Scan (Routine) Status Reason Specialty Diagnoses / Procedures Referred By Contact Referred To Contact Closed Diagnoses Cerebral aneurysm, nonruptured Merna Isaacs MD [facility] Procedures CT HEAD ANGIOGRAPHY [facility] [address] [place] [address] [place] [address] Phone: [phone] Encounter Details Date Type Department Care Team Description 04/26/2019 Hospital Encounter [facility] Outpatient [address] [place] [address] Allergies Active Allergy Reactions Severity Noted Date Comments Clindamycin Hcl Dermatologic Reaction Low 11/13/2018 Made pt very ill documented as of this encounter (statuses as of 04/28/2019) Medications Medication Sig Dispensed Refills Start End [...] Take by 0 Active Oral Cap mouth. [place] 3 1000 MG Oral Take 1,120 0 [...] Tablet Therapy PackIndications: Acute non-recurrent maxillary sinusitis cyclosporin Place 1 Drop 180 Each 3 Active (RESTASIS) 0.05 % in both eyes 0 Ophthalmic EVERY TWELVE EmulsionIndications: HOURS. Dry eye CEFDINIR PO Take 300 mg 0 Active by mouth TWICE DAILY. fluticasone (FLONASE) [place] 2 1 Bottle 2 04/26/19 Discontinued 50 MCG/ACT Nasal Sprays in 9 20 (Reorder) SuspensionIndications nose DAILY. : ETD (Eustachian tube dysfunction), left, Hypertrophy of inferior nasal turbinate, Chronic rhinitis documented as of this encounter (statuses as of 04/28/2019) Active Problems Problem Noted Date Trace cataracts [...] as of this encounter (statuses as of 04/28/2019) Immunizations Name Administration Dates Next Due TDAP Vaccine 10/29/2008 documented as of this encounter Social History Tobacco Use Types Packs/Day Years Used Date Current Every Day Smoker Cigarettes 0.5 30 Smokeless Tobacco: Never Used Alcohol Use Drinks/Week oz/Week Comments Not Currently socially Sex Assigned at Date Recorded Not on file documented as of this encounter Last Filed Vital Signs Not on filedocumented in this encounter Plan of Treatment Date Type Specialty Care Team Description 06/18/2019 Office Visit Neurology Rey Waters MD [address] [place] [place] [address] [phone] 08/21/2019 Ocular Visit Optometry Robe Solo, OD [address] [place] [address] [phone] Name Type Priority Associated Diagnoses Date/Time CT HEAD ANGIOGRAPHY Imaging Routine Cerebral aneurysm, 04/26/2019 10:20 AM [facility] nonruptured EST Name Type Priority Associated Diagnoses Order Schedule CT HEAD ANGIOGRAPHY Imaging Routine Cerebral aneurysm, 1 Occurrences starting [facility] nonruptured 04/26/2019 until 04/26/2019 Health Maintenance Due Date Last Done Comments [...] Progress Work with your General Gissel Felder Travel Attendants MD Krunal Note: This is an individualized treatment (frequent ED use) goal for Rosetta Bain: Please work with your Travel Attendants, who will assist you in meeting your [...] filedocumented in this encounter Visit Diagnoses Diagnosis Cerebral aneurysm, nonruptured documented in this encounter Administered Medications Medication Order MAR Action Action Date Dose Rate Site iohexol (OMNIPAQUE) 350 MG/ML Push 04/26/2019 10:00 AM EST 100 mL injectable solution 100 mL 100 mL, Intravenous, NOW, 1 dose, 04/26/19 at 1000 documented in this encounter Insurance Payer Benefit Plan / Subscriber ID Effective Dates Phone Address Type Group [facility] [id number] 2017-[place] Blue t Cross/Blue Shield Guarantor Name Account Type Relation to Date of Phone Billing Patient Address Rosetta Bain Personal/Family 1960 [address] [phone] [place], [place] (Work) [address] documented as of this encounter
--- OUTSIDE RECORDS SUMMARY | 2019-05-21 11:58 | XMS REPORT | Summary of Care ---
:1960 Author Organization [facility] Address [address] [place] [address] Care Team Providers Name Role Phone Janice Han Primary Care Provider Reason for Visit Reason Comments Follow Up no pain today, Right side of her eye is tingling. Cheek area on right side numb Results CTA Results Encounter Details Date Type Department Care Team Description 04/26/2019 Office Visit [facility] Merna Isaacs MD Cerebral aneurysm, [address] nonruptured (Primary [place] [id number] [place] [address] Dx) [phone] Allergies Active Allergy Reactions Severity Noted Date [...] for 1 day. labialis fluticasone (FLONASE) 50 [place] 2 Sprays 1 Bottle 2 02/01/2019 Active [...] Oral Take by mouth. 0 Active Cap Mohawk 3 1000 MG Oral Cap Take 1,120 [...] Therapy PackIndications: Acute non-recurrent maxillary sinusitis cyclosporin (RESTASIS) Place 1 Drop in 180 Each 3 04/17/2019 Active 0.05 % Ophthalmic both eyes EVERY EmulsionIndications: Dry TWELVE HOURS. eye CEFDINIR PO Take 300 mg by 0 Active mouth TWICE DAILY. documented as of this encounter (statuses as [...] Sign Reading Time Taken Comments Blood Pressure 120/80 04/26/2019 10:53 AM EST Pulse - - Temperature - - Respiratory Rate - - Oxygen Saturation - - Inhaled Oxygen Concentration - - Weight 68.4 kg (150 lb 14.4 oz) 04/26/2019 10:53 AM EST Height 167.6 cm (5' 6") 04/26/2019 10:53 AM EST Body Mass Index 24.36 04/26/2019 10:53 AM EST documented in this encounter Progress Notes Merna Isaacs MD - 04/26/2019 11:40 AM EST [facility] Patient: Rosetta Bain : 1960 Date of Service: 04/26/2019 Chief Complaint Patient presents with ? Follow Up no pain today, Right side of her eye is tingling. Cheek area on right side numb ? Results CTA Results HPI: This is a 58-y.o. last seen in neurosurgery clinic a month ago for a newly found right cavernous carotid aneurysm. She states that a couple of weeks ago she woke up with redness in the right eye. She had tingling along the eye and some numbness in V2. She went to the eye dr and was told she had a virus in the eye. She denies any LAI. No new speech problems. No pain behind the right eye. The redness has gone away. The tingling and numbness is intermittent. Better with touching it and rubbing a roller picker over it. No other numbness/ tignling or weakness. Past Medical History: Diagnosis Date ? Dizziness ? Endometriosis diag as teenager surgeries in [id number], four in total ? GERD (gastroesophageal reflux disease) 1998 did have scope which showed gastritis ? Headache disorder ? Nulliparity ? Otitis media ? Pneumonia ? Postmenopausal ? Sinusitis, chronic Past Surgical History: Procedure Laterality Date ? ARTHROSCOPY SHOULDER ACROMIOPLASTY ROTATOR CUFF REPAIR Left ? COLONOSCOPY N/A 05/26/2014 Procedure: COLONOSCOPY; Surgeon: Willie Quiroga MD; Location: [facility] ? COLONOSCOPY DIAGNOSTIC ? EGD 05/31/2011 Procedure:ENDOSCOPY UPPER GI; Surgeon:WILLIE QUIROGA; Location[facility]; Laterality:N/A ? EGD N/A 05/26/2014 Procedure: ENDOSCOPY UPPER GI; Surgeon: Willie Quiroga MD; [facility] ? EGD N/A 03/29/2019 Procedure: ENDOSCOPY UPPER GI; Surgeon: Willie Quiroga MD; Location: [facility] ? EGD ([facility] NON [facility]) 2005 ? HYSTERECTOMY, ABDOMINAL 2006 Supracervical Hysterectomy-- Left ovary remains ? MYRINGOTOMY WITH TUBES, BILATERAL Bilateral 10/04/2017 Procedure: REMOVE LEFT EAR TUBE; Surgeon: Sigifredo Leonardo MD; Location: [facility] Main OR ? OPHTHALMIC PLASTICS Left growth removed LLL ? MO APPENDECTOMY 1970's ? MO NUCLEAR EXAM UNLISTED Has a history of endometriosis, has had surgeries for that. ? UNILAT SALPINGO-OOPHOREC 2006 right side removed Social History Socioeconomic History ? Marital status: [...] file Gets together: Not on file Attends judaism service: Not on file Active member of [...] Not Asked Social History Narrative Works for [employer] Family History - non contributory to the cerebral aneurysm Outpatient Medications as of 04/26/2019 Medication Sig Dispense Refill ? amoxicillin-clavulanic acid (AUGMENTIN) 875-125 MG Oral Tab Take 1 Tab by mouth TWICE DAILY.20 Tab 0 ? Aspirin 81 MG Oral Tab Take 81 mg by mouth. ? CEFDINIR PO Take 300 mg by mouth TWICE DAILY. ? cimetidine (TAGAMET) 300 MG Oral Tab Take 300 mg by mouth EVERY EVENING. 30 Tab 5 ? Cranberry 1000 MG Oral Cap Take by mouth. ? Cyanocobalamin (B-12 PO) Take by mouth. ? cyclosporin (RESTASIS) 0.05 % Ophthalmic Emulsion Place 1 Drop in both eyes EVERY TWELVE HOURS. 180 Each 3 ? fluticasone (FLONASE) 50 MCG/ACT Nasal Suspension [place] 2 Sprays in nose DAILY. 1 Bottle 2 ? L-LYSINE PO Take 2 Tabs by mouth DAILY. ? Lactobacillus (PROBIOTIC ACIDOPHILUS PO) Take by mouth. ? linaCLOtide (LINZESS) 290 MCG Oral Cap Take 290 mcg by mouth EVERY MORNING. 30 Cap 2 ? Magnesium 250 MG Oral Tab Take by mouth. ? methylPREDNISolone, dose-yandy, (MEDROL) 4 MG Oral Tablet Therapy Pack Take as directed 21 Tab0 ? Multiple Vitamin (MULTI-VITAMIN PO) Take by mouth DAILY. ? [place] 3 1000 MG Oral Cap Take 1,120 mcg by mouth. ? ondansetron (ZOFRAN) 4 MG Oral TABLET DISPERSIBLE Take 1 Tab by mouth EVERY EIGHT HOURS NEEDED (nausea/vomiting). 15 Tab 0 ? pantoprazole (PROTONIX) 40 MG Oral Tab EC Take 1 Tab by mouth DAILY. 30 Tab 2 ? polyethylene glycol (MIRALAX) Oral Powder Take 17 g by mouth DAILY. 527 g 5 ? tobramycin-dexamethasone (TOBRADEX) 0.3-0.1 % Ophthalmic Suspension Place 1 Drop in right eye THREE TIMES DAILY. 1 Bottle 1 ? VALTREX 1 g Oral Tab Take 2 Tabs by mouth TWICE DAILY for 1 day. 4 Tab 3 Facility-Administered Medications as of 04/26/2019 Medication Dose Route Frequency Provider Last Rate Last Dose ? [COMPLETED] iohexol (OMNIPAQUE) 350 MG/ML injectable solution 100 mL 100 mL Intravenous Julius Abreu MD 100 mL at 04/26/19 1000 Allergies Allergen Reactions ? Clindamycin Hcl Dermatologic Reaction Made pt very ill ROS: Constitutional : negative for - chills, fever, weight gain or weight loss Ophthalmic: negative for - blurry vision, visual disturbancy ENT: negative for - hearing change, hoarseness, voice change Heme/Lymph: negative for - blood clots, bruising or jaundice Respiratory: negative for: cough, shortness of breath, or wheezing Cardiovascular: negative for: chest pain or dyspnea on exertion Gastrointestinal: negative for: abdominal pain, change in bowel habits, or black or bloody stools Genito-Urinary: negative for: dysuria, trouble voiding, or hematuria Musculoskeletal: negative pain Endocrine: negative for - unexpected weight changes Neurological: numbess/tingling in V1 and 2 Dermatological: negative for - skin lesion changes EXAM: BP 120/80 | Ht 5' 6" (1.676 m) | Wt 150 lb 14.4 oz (68.4 kg) | BMI 24.36 kg/ m This is a well-developed well-nourished female in no acute distress. Mental: Awake and alert and oriented to self, place and date. Speech: Fluent, comprehension intact. CRN: Pupils - reactive 3, 4, 6 - EOM intact, no nystagmus 5 - V1 V2 V3 intact to light touch bilaterally 7 - face symmetrical 8 - hearing intact bilaterally to FR 10 - palate symmetrical 11 - traps and SCM 5/5 bilaterally 12 - tongue midline Motor exam: D B T WE WF G HF HE KE KF DF PF EHL R 5 5 5 5 5 5 5 5 5 5 5 5 5 L 5 5 5 5 5 5 5 5 5 5 5 5 5 Sensory exam: Intact to light touch Reflexes: B 2 T 2 BR 2 P 2 No clonus or hoffmans Cerebellar: Normal HTS Gait and Station: Normal Heart: Normal rate and rhythm Lungs: CTA bilaterally Imaging: I personally reviewed the CTA shows a stable right cavernous carotid aneurysm Assessment and Plan: Ms Bain is a 58 yo woman with 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 Her aneurysm is stable.RTC PRN. Author: Merna Isaacs MD 12:29 04/26/2019 documented in this encounter Plan of Treatment Date Type Specialty Care Team Description 06/18/2019 Office Visit Neurology Rey Waters MD [address] [address] [phone] 08/21/2019 Ocular Visit Optometry Robe Solo, OD [address] [place] [address] [phone] Health Maintenance Due Date Last Done Comments [...] Progress Work with your General Gissel Felder Filter Tender MD Krunal Note: This is an individualized treatment (frequent ED use) goal for Rosetta Bernal Taya: Please work with your Filter Tender, who will assist you in meeting your [...] an individualized self-management goal for Rosetta Bernal Messisid: Please take all prescribed medications as directed. [...] Cerebral aneurysm, nonruptured documented in this encounter Insurance Payer Benefit Plan / Subscriber ID Effective Dates Phone Address Type Group [facility] [id number] 2017-[place] Blue t Cross/Blue Shield Guarantor Name Account Type Relation to Date of Phone Billing Patient Address Rosetta Bain Personal/Family 1960 [address] [phone] [place], [place] (Work) [address] documented as of this encounter
--- OUTSIDE RECORDS SUMMARY | 2019-05-21 11:58 | XMS REPORT | Summary of Care ---
:1960 Author Organization [facility] Address [address] [place] [address] Care Team Providers Name Role Phone Janice Han Primary Care Provider Reason for Visit Reason Comments Follow Up Encounter Details Date Type Department Care Team Description 04/10/2019 Office Visit [facility] Fracchia, Gastritis and gastroduodenitis (Primary Dx); Dev Wheeler PA-C Chronic constipation [address] [place] [address] [place] [phone] [address] [phone] Allergies Active Allergy Reactions Severity Noted Date Comments Clindamycin Hcl Dermatologic Reaction Low 11/13/2018 Made pt very ill documented as of this encounter (statuses as of 04/10/2019) Medications Medication Sig Dispensed Refills Start Date End Date Status Multiple Vitamin Take by 0 Active (MULTI-VITAMIN PO) mouth DAILY. L-LYSINE PO Take 2 Tabs 0 Active by mouth DAILY. Cyanocobalamin (B-12 Take by 0 Active PO) mouth. polyethylene glycol Take 17 g 527 g 5 08/21/2018 Active (MIRALAX) Oral by mouth PowderIndications: DAILY. Chronic constipation VALTREX 1 g Oral Take 2 Tabs 4 Tab 3 01/25/2019 Active TabIndications: by mouth Recurrent herpes TWICE DAILY labialis for 1 day. fluticasone (FLONASE) [place] 2 1 Bottle 2 02/01/2019 Active 50 MCG/ACT Nasal Sprays in SuspensionIndications nose DAILY. : ETD (Eustachian tube dysfunction), left, Hypertrophy of inferior nasal turbinate, Chronic rhinitis ondansetron (ZOFRAN) Take 1 Tab 15 Tab 0 02/20/2019 Active 4 MG Oral TABLET by mouth DISPERSIBLE EVERY EIGHT HOURS NEEDED (nausea/vom iting). pantoprazole Take 1 Tab 30 Tab 2 03/12/2019 Active (PROTONIX) 40 MG Oral by mouth Tab ECIndications: DAILY. Gastritis and gastroduodenitis linaCLOtide (LINZESS) Take 290 30 Cap 2 03/12/2019 Active 290 MCG Oral mcg by CapIndications: mouth EVERY Chronic constipation MORNING. Magnesium 250 MG Oral Take by 0 Active Tab mouth. Cranberry 1000 MG Take by 0 Active Oral Cap mouth. doxycycline Take 100 mg 0 Active (VIBRAMYCIN) 100 MG by mouth Oral Tab TWICE DAILY. [place] 3 1000 MG Oral Take 1,120 0 Active Cap mcg by mouth. Lactobacillus Take by 0 Active (PROBIOTIC mouth. ACIDOPHILUS PO) tobramycin-dexamethas Place 1 1 Bottle 1 03/28/2019 Active one (TOBRADEX) Drop in 0.3-0.1 % Ophthalmic right eye SuspensionIndications THREE TIMES : Viral DAILY. conjunctivitis of right eye Aspirin 81 MG Oral Take 81 mg 0 Active Tab by mouth. cimetidine (TAGAMET) Take 300 mg 30 Tab 5 04/10/2019 Active 300 MG Oral by mouth TabIndications: EVERY Gastritis and EVENING. gastroduodenitis cimetidine (TAGAMET) Take 300 mg 30 Tab 5 04/10/2019 Discontinued 300 MG Oral by mouth 0 (Reorder) TabIndications: EVERY Gastritis and EVENING. gastroduodenitis documented as of this encounter (statuses as of 04/10/2019) Active Problems Problem Noted Date Trace cataracts [...] as of this encounter (statuses as of 04/10/2019) Immunizations Name Administration Dates Next Due TDAP [...] Sign Reading Time Taken Comments Blood Pressure 104/50 04/10/2019 8:40 AM EST Pulse - - Temperature - - Respiratory Rate - - Oxygen Saturation - - Inhaled Oxygen Concentration - - Weight 68.9 kg (152 lb) 04/10/2019 8:40 AM EST Height 167.6 cm (5' 6") 04/10/2019 8:40 AM EST Body Mass Index 24.53 04/10/2019 8:40 AM EST documented in this encounter Progress Notes Liam Barbour PA-C - 04/10/2019 8:45 AM EST PATIENT: Rosetta Bain : 1960 DATE OF SERVICE: 04/10/2019 REFERRING PRACTITIONER: Self-Referred PRIMARY CARE PROVIDER: Janice Han CHIEF COMPLAINT: Chief Complaint Patient presents with Follow Up Subjective HISTORY OF PRESENT ILLNESS: Rosetta Bain is a 58-y.o. female who presents for follow-up of GERD, chronic constipation, and SIBO. FH is negative for known CRC involving a 1st degree relative. EGD (2005):retained gastric contents. Celiac disease 04/23/14:negative. Colonoscopy 05/26/14:macroscopically normal. EGD 05/26/14:gastritis. Hydrogen breath was (+) for SIBO. CT 03/01/19: Mild distal esophageal thickening EGD 03/29/19: irregular z-line and gastritis. HP and BE (-) Previous visits for this problem: yes, last seen by me. Medical therapy has included Kgtggcn33 gm QHS,Xifaxan 550 mg bid (1 week q 2 month), andLinzess 290 mcg QAM. Protonix 40 mg QAM. Senna 1 tab q 3 days. Current treatment: compliant all of the time. Treatment has been effective. Side effects: none. Patient reports improvement of reflux, but still has frequent reflux after dinner. Bowel movements occur daily described as loose stool, but has a feeling of incomplete evacuation. She denies fever, chills, vomiting, melena, and hematochezia. Current Outpatient Medications Medication Sig Aspirin 81 MG Oral Tab Take 81 mg by mouth. cimetidine (TAGAMET) 300 MG Oral Tab Take 300 mg by mouth EVERY EVENING. Cranberry 1000 MG Oral Cap Take by mouth. Cyanocobalamin (B-12 PO) Take by mouth. doxycycline (VIBRAMYCIN) 100 MG Oral Tab Take 100 mg by mouth TWICE DAILY. fluticasone (FLONASE) 50 MCG/ACT Nasal Suspension [place] 2 Sprays in nose DAILY. L-LYSINE PO Take 2 Tabs by mouth DAILY. Lactobacillus (PROBIOTIC ACIDOPHILUS PO) Take by mouth. linaCLOtide (LINZESS) 290 MCG Oral Cap Take 290 mcg by mouth EVERY MORNING. Magnesium 250 MG Oral Tab Take by mouth. Multiple Vitamin (MULTI-VITAMIN PO) Take by mouth DAILY. [place] 3 1000 MG Oral Cap Take 1,120 [...] Made pt very ill REVIEW OF SYSTEMS: All remaining review of systems was negative except for as noted in the history of present illness/subjective. Objective PHYSICAL EXAMINATION: VITALS: BP 104/50 | Ht 5' 6" (1.676 m) | Wt 152 lb (68.9 kg) | BMI 24.53 kg/ m Body mass index is 24.53 kg/m. GENERAL: alert, oriented, no acute distress. LUNGS: clear to auscultation bilaterally. HEART: regular rhythm, no mumurs. ABDOMEN: general exam: soft, non-tender, non-distended, without masses or organomegaly, normal active bowel sounds, Bob's sign negative. IMPRESSION: ICD-9-CM ICD-10-CM 1. Gastritis and gastroduodenitis 535.50 K29.70 cimetidine (TAGAMET) 300 MG Oral Tab K29.90 DISCONTINUED: cimetidine (TAGAMET) 300 MG Oral Tab 2. Chronic constipation 564.00 K59.09 Stable constipation. Add Tagement 300 mg before dinner. Follow up: Schedule follow-up here in 6 month(s). Author: Liam Barbour PA-C 04/10/2019 09:02 documented in this encounter Plan of Treatment Date Type Specialty Care Team Description 06/18/2019 Office Visit Neurology Rey Waters MD [address] [address] [phone] Health Maintenance Due Date Last Done Comments [...] Progress Work with your General Gissel Felder Zinc Etcher MD Krunal Note: This is an individualized treatment (frequent ED use) goal for Rosetta Bain: Please work with your Zinc Etcher, who will assist you in meeting your [...] filedocumented in this encounter Visit Diagnoses Diagnosis Gastritis and gastroduodenitis Unspecified gastritis and gastroduodenitis without mention of hemorrhage Chronic constipation Unspecified constipation documented in this encounter Insurance Payer Benefit Plan / Subscriber ID Effective Dates Phone Address Type Group [facility] xxxxxxxxxxxxxxx [facility] Blue t Cross/Blue Shield Guarantor Name Account Type Relation to Date of Phone Billing Patient Address Rosetta Bain Personal/Family 1960 [address] [phone] [place], [place] (Work) [address] documented as of this encounter
--- OUTSIDE RECORDS SUMMARY | 2019-05-21 11:59 | XMS REPORT | Summary of Care ---
:1960 Author Organization [facility] Address [address] [address] Care Team Providers Name Role Phone Janice Han Primary Care Provider Reason for Visit Reason Comments Eye Problem reddness right eye started woke up with it Encounter Details Date Type Department Care Team Description 03/28/2019 Office Visit [facility] Bekah Ochoa, [facility] Dx[facility] [place] [address] [phone] [place] [address] [phone] Allergies Active Allergy Reactions Severity Noted Date Comments Clindamycin Hcl Dermatologic Reaction Low 11/13/2018 Made pt very ill documented as of this encounter (statuses as of 03/28/2019) Medications Medication Sig Dispensed Refills Start Date [...] TWICE herpes labialis DAILY for 1 day. fluticasone (FLONASE) 50 [place] 2 Sprays 1 Bottle 2 02/01/2019 Active MCG/ACT Nasal in nose DAILY. SuspensionIndications: ETD (Eustachian tube dysfunction), left, Hypertrophy of inferior nasal turbinate, Chronic rhinitis ondansetron (ZOFRAN) 4 MG Take 1 Tab by 15 Tab 0 02/20/2019 Active Oral TABLET DISPERSIBLE mouth EVERY EIGHT HOURS NEEDED (nausea/vomitin g). lactulose (CEPHULAC) 10 Take 15 mL by 946 mL 1 02/26/2019 Active GM/15ML Oral mouth TWICE SolutionIndications: DAILY. Chronic constipation pantoprazole (PROTONIX) Take 1 Tab by 30 Tab 2 03/12/2019 Active 40 MG Oral Tab mouth DAILY. ECIndications: Gastritis and gastroduodenitis linaCLOtide (LINZESS) 290 Take 290 mcg by 30 Cap 2 03/12/2019 Active MCG Oral CapIndications: mouth EVERY Chronic constipation MORNING. Magnesium 250 MG Oral Tab Take by mouth. 0 Active Cranberry 1000 MG Oral Take by mouth. 0 Active Cap doxycycline (VIBRAMYCIN) Take 100 mg by 0 Active 100 MG Oral Tab mouth TWICE DAILY. [place] 3 1000 MG Oral Cap Take 1,120 mcg 0 Active by mouth. Lactobacillus (PROBIOTIC Take by mouth. 0 Active ACIDOPHILUS PO) documented as of this encounter (statuses as of 03/28/2019) Active Problems Problem Noted Date Trace cataracts [...] as of this encounter (statuses as of 03/28/2019) Immunizations Name Administration Dates Next Due TDAP [...] Sign Reading Time Taken Comments Blood Pressure 128/70 03/28/2019 7:33 AM EST Pulse 89 03/28/2019 7:33 AM EST Temperature 36.1 03/28/2019 7:33 AM EST C (97 F) Respiratory Rate - - Oxygen Saturation 100% 03/28/2019 7:33 AM EST Inhaled Oxygen Concentration - - Weight 68.5 kg (151 lb) 03/28/2019 7:33 AM EST Height - - Body Mass Index 24.37 03/20/2019 7:54 AM EST documented in this encounter Progress Notes Bekah Ochoa NP - 03/28/2019 7:20 AM EST PATIENT: Rosetta Bain : 1960 DATE OF SERVICE: 03/28/2019 CHIEF COMPLAINT: Chief Complaint Patient presents with Eye Problem reddness right eye started woke up with it Subjective HISTORY OF PRESENT ILLNESS: Rosetta Bain is a 58-y.o. female. Patient has hx of Small right cavernous aneurysm - sees a neurologist; Per patient problem list - has had floaters in right eye; Eye Pain The history is provided by the patient. No speech and language assistant was used. This is a new problem. Thecurrent episode started today (this morning;). The problem occurs constantly (since this morning;). The problem has been unchanged. The right eye is affected. Injury mechanism: denies injury/scratch; works at [employer] so unsure if had exposure to conjunctivitis; Pain severity now: patient denies pain, but states eye feels tingly, feels dry, and puffy; There is no history of trauma to the eye. Known exposure: unknown. She does not wear contacts. Associated symptoms include foreign body sensation, eye redness and tingling. Pertinent negatives include no blurred vision, no decreased vision, no discharge, no double vision, no photophobia, no nausea, no vomiting and no itching. She has tried nothing forthe symptoms. Past Medical History: Diagnosis Date Dizziness Endometriosis diag as teenager surgeries in [id number], four in total GERD (gastroesophageal reflux disease) [...] family history Current Outpatient Medications Medication Sig Cranberry 1000 MG Oral Cap Take by mouth. Cyanocobalamin (B-12 PO) Take by mouth. doxycycline (VIBRAMYCIN) 100 MG Oral Tab Take 100 mg by mouth TWICE DAILY. fluticasone (FLONASE) 50 MCG/ACT Nasal Suspension Deane 2 Sprays in nose DAILY. L-LYSINE PO Take 2 Tabs by mouth DAILY. Lactobacillus (PROBIOTIC ACIDOPHILUS PO) Take by mouth. lactulose (CEPHULAC) 10 GM/15ML Oral Solution Take 15 mL by mouth TWICE DAILY. linaCLOtide (LINZESS) 290 MCG Oral Cap Take 290 mcg by mouth EVERY MORNING. Magnesium 250 MG Oral Tab Take by mouth. Multiple Vitamin (MULTI-VITAMIN PO) Take by mouth DAILY. [place] 3 1000 MG Oral Cap Take 1,120 mcg by mouth. ondansetron (ZOFRAN) 4 MG Oral TABLET DISPERSIBLE Take 1 Tab by mouth EVERY EIGHT HOURS NEEDED (nausea/vomiting). pantoprazole (PROTONIX) 40 MG Oral Tab EC Take 1 Tab by mouth DAILY. polyethylene glycol (MIRALAX) Oral Powder Take 17 g by mouth DAILY. VALTREX 1 g Oral Tab Take [...] file Gets together: Not on file Attends episcopal service: Not on file Active member of [...] Concern Not Asked Social History Narrative Works [employer] REVIEW OF SYSTEMS: Review of Systems Eyes: Positive for redness. Negative for blurred vision, double vision, photophobia and discharge. Gastrointestinal: Negative for diarrhea, nausea and vomiting. Skin: Negative for itching. Neurological: Positive for dizziness (Hx of vertigo - usually bothers her, states is no worse than her normal;), tingling and headaches. Objective PHYSICAL EXAM: VITALS: BP 128/70 (BP Location: Left arm, Patient Position: Sitting) | Pulse 89 | Temp 97 F (36.1 C) (Tympanic) | Wt 151 lb (68.5 kg) | SpO2 100% | BMI 24.37 kg/m Body mass index is 24.37 kg/m. Physical Exam Vitals signs and nursing note reviewed. HENT: Head: Normocephalic. Eyes: General: Lids are normal. No allergic shiner or scleral icterus. Right eye: No foreign body, discharge or hordeolum. Left eye: No foreign body, discharge or hordeolum. Extraocular Movements: Extraocular movements intact. Conjunctiva/sclera: Right eye: Right conjunctiva is not injected. Hemorrhage (possible conjunctival hemorrage? ) present. Pupils: Pupils are equal, round, and reactive to light. Neurological: Mental Status: She is alert. ASSESSMENT / IMPRESSION: ICD-9-CM ICD-10-CM 1. Redness of right eye 379.93 H57.89 Plan Cannot definitively say it is truly conjunctivitis at this time - appears to look like a conjunctival hemorrhage, however, with the hx of this patient would like to have her see the eye clinic today for further assessment. Has an appt at 2:30pm; Encouraged any worsening symptoms before then, contact neurology; any worsening headache, vertigo, visual changes, swelling go to ER. Author: Bekah Ochoa NP 03/28/2019 09:00 documented in this encounter Plan of Treatment Date Type Specialty Care Team Description 03/28/2019 Ocular Visit Optometry Robe Solo, OD [address] [place], [place] [id number] 03/29/2019 Hospital Encounter [facility] Short Procedure Anmol Han MD [address] [place] [address] 03/29/2019 Surgery [facility] ENDOSCOPY UPPER GI Anmol Han MD [address] [place] [address] 03/29/2019 [facility] [address] [place] [address] 04/10/2019 Office Visit Gastroenterology Liam Barbour PA-C [address] [place] [address] 06/18/2019 Office Visit Neurology Rey Waters MD [...] Progress Work with your General Gissel Felder Riding Double MD Krunal Note: This is an individualized treatment (frequent ED use) goal for Rosetta Bain: Please work with your Riding Double, who will assist you in meeting your [...] gastritis and gastroduodenitis without mention of hemorrhage Diagnosis Redness of right eye Redness or discharge of eye documented in this encounter Insurance Payer Benefit Plan / Subscriber ID Effective Dates Phone Address Type Group [facility] xxxxxxxxxxxxxxx 2017-[facility] Blue t Cross/Blue Shield Guarantor Name Account Type Relation to Date of Phone Billing Patient Address Rosetta Bain Dolores Personal/Family 1960 [address] [phone] [place], [place] (Work) [address] documented as of this encounter"
--- OUTSIDE RECORDS SUMMARY | 2019-05-21 11:59 | XMS REPORT | Summary of Care ---
:1960 Author Organization [facility] Address [address] [address] Care Team Providers Name Role Phone Chance Marshall Primary Care Provider Reason for Visit Auth/Cert Status Reason Specialty Diagnoses / Procedures Referred By Contact Referred To Contact Encounter Details Date Type Department Care Team Description 03/29/2019 [facility] Guille [address] [place] [address] [place] [address] [phone] Allergies Active Allergy Reactions Severity Noted Date Comments Clindamycin Hcl Dermatologic Reaction Low 11/13/2018 Made pt very ill documented as of this encounter (statuses as of 03/30/2019) Medications Medication Sig Dispensed Refills Start Date End Date Status Multiple Vitamin Take by mouth 0 Active (MULTI-VITAMIN PO) DAILY. L-LYSINE PO Take 2 Tabs by 0 Active mouth DAILY. Cyanocobalamin (B-12 PO) Take by mouth. 0 Active polyethylene glycol Take 17 g by 527 g 5 08/21/2018 Active (MIRALAX) Oral mouth DAILY. PowderIndications: Chronic constipation fluticasone (FLONASE) 50 [place] 2 Sprays 1 Bottle 2 02/01/2019 Active [...] Oral CapIndications: mouth EVERY Chronic constipation MORNING. documented as of this encounter (statuses as of 03/30/2019) Active Problems Problem Noted Date Trace cataracts [...] as of this encounter (statuses as of 03/30/2019) Immunizations Name Administration Dates Next Due TDAP [...] Sign Reading Time Taken Comments Blood Pressure 126/62 03/29/2019 12:00 PM EST Pulse 70 03/29/2019 12:00 PM EST Temperature 35.6 03/29/2019 12:00 PM EST C (96.1 F) Respiratory Rate 17 03/29/2019 12:00 PM EST Oxygen Saturation 98% 03/29/2019 12:00 PM EST Inhaled Oxygen Concentration - - Weight - - Height - - Body Mass Index - - documented in this encounter Plan of Treatment Date Type Specialty Care Team Description 04/10/2019 Office Visit Gastroenterology Fracchia, Liam, PA-C [address] [place] [address] [phone] 06/18/2019 Office Visit Neurology Rey Waters MD [address] [address] [phone] Name Type Priority Associated Diagnoses Date/Time TISSUE EXAM Lab Routine Gastritis and gastroduodenitis 03/29/2019 11:11 AM EST Name Type Priority Associated Diagnoses Order Schedule TISSUE EXAM Lab Routine Gastritis and gastroduodenitis Release Upon Ordering for 1 Occurrences starting 03/29/2019 Health Maintenance Due Date Last Done Comments [...] Progress Work with your General Gissel Felder Photographer Motion Picture MD Krunal Note: This is an individualized treatment (frequent ED use) goal for Rosetta Bain: Please work with your Photographer Motion Picture, who will assist you in meeting your [...] encounter Procedures Procedure Name Priority Date/Time Associated Diagnosis Comments PROCEDURE SAFETY 03/29/2019 12:00 CHECKLIST PM EST PHYSICIAN ORDER 03/29/2019 12:00 PM EST ENDOSCOPY UPPER Planned Trip to 03/29/2019 11:04 Gastritis and GI OR AM EST gastroduodenitis UPPER GI Routine 03/29/2019 10:45 Results for ENDOSCOPY REPORT AM EST this procedure are in the results section. documented in this encounter Results UPPER GI ENDOSCOPY REPORT (03/29/2019 10:45 AM EST) [facility] Upper GI endoscopy [facility] Gastroenterology __ Patient Name: Rosetta Bain Procedure Date: 03/29/2019 10:45 AM Date of : 1960 Admit Type: Outpatient Age: 58 Room: 3 Gender: Female Note Status: Finalized Attending MD: WILLIE QUIROGA MD __ Procedure: Upper GI endoscopy Indications: Dyspepsia Providers: WILLIE QUIROGA MD, Zenia Burleson, Juarez Hollins, Adolfo Johns, Patient Day Coordinator (Patient Day Coordinator) Referring MD: CHANCE MARSHALL MD (Referring MD) Medicines: Midazolam 10 mg IV, Meperidine 25 mg IV Complications: No immediate complications. __ Requesting Provider: Procedure: The patient's current medications and allergies were reviewed and recorded in the nurses notes. The patient was made aware of the risk of the procedure which can include: bleeding, infection, perforation, an adverse reaction to sedation, and a risk of missed lesions, among others. The patient appeared to understand. An opportunity for questions was provided, and an informed consent form was signed. The scope was passed under direct vision. Throughout the procedure, the patient's blood pressure, pulse EKG, and oxygen saturations were monitored continuously. The Endoscope was introduced through the mouth, and advanced to the second part of duodenum. The Z-line was located at: The upper GI endoscopy was accomplished without difficulty. The patient tolerated the procedure well. Findings: The Z-line was irregular and was found at the gastroesophageal junction. Biopsies were taken with a cold forceps for histology. Localized moderately erythematous mucosa was found in the stomach. Biopsies were taken with a cold forceps for Helicobacter pylori testing. The second portion of the duodenum was normal. Moderate Sedation: Moderate (conscious) sedation was administered by the endoscopy nurse and supervised by the endoscopist. The following parameters were monitored: oxygen saturation, heart rate, blood pressure, respiratory rate, EKG, adequacy of pulmonary ventilation, and response to care. Impression: - Z-line irregular, at the gastroesophageal junction. Biopsied. - Erythematous mucosa in the stomach. Biopsied. - Normal second portion of the duodenum. Recommendation: - Await pathology results. Procedure Code(s): --- Professional --- 13132, Esophagogastroduodenoscopy, flexible, transoral; with biopsy, single or multiple Diagnosis Code(s): --- Professional --- K22.8, Other specified diseases of esophagus K31.89, Other diseases of stomach and duodenum R10.13, Epigastric pain CPT copyright 2017 [employer]. All rights reserved. The codes documented in this report are preliminary and upon electrical products engineer review may be revised to meet current compliance requirements. WILLIE QUIROGA MD 03/29/2019 11:14:18 AM This report has been signed electronically. Number of Addenda: 0 Note Initiated On: 03/29/2019 10:45 AM CC Letter to: CHANCE MARSHALL MD (CC) Specimen Performing Organization Address [facility]State[facility] documented in this encounter Visit Diagnoses Diagnosis Gastritis and gastroduodenitis Unspecified gastritis and gastroduodenitis without mention of hemorrhage documented in this encounter Insurance Payer Benefit Plan / Subscriber ID Effective Dates Phone Address Type Group [facility] xxxxxxxxxxxxxxx 2017-[facility] Blue t Cross/Blue Shield Guarantor Name Account Type Relation to Date of Phone Billing Patient Address Rosetta Bain Personal/Family 1960 [address] [phone] [place], [place] (Work) [address] documented as of this encounter
[2019-05-21 12:38] LABS: TSH (Thyroid Stimulating Horm) 1.13 mcIU/mL (0.34-5.60)
[2019-05-21] MEDS ORDERED: Ketorolac INJ* 30 MG/ML 1 ML VIAL IV PUSH ONE (13:41)
[2019-05-21 15:15] VITALS: BP 107/78
== END 2019-05-21 15:19 | disposition home or self-care (01) ==
LOC: ED 10:55
DX: R07.89 Other chest pain (principal); K21.9 Gastro-esophageal reflux disease without esophagitis; R07.9 Chest pain, unspecified; R20.2 Paresthesia of skin; Z79.899 Other long term (current) drug therapy; Z79.82 Long term (current) use of aspirin; F17.210 Nicotine dependence, cigarettes, uncomplicated
CPT/HCPCS: 36415; 71045; 80053; 82550; 82553; 83605; 83735; 83880; 84443; 84484; 85025; 93005; 96374; 99283; J1885